=== PATIENT | female | born 1990 | race Native Hawaiian/Other Pacific Islander ===

== ENCOUNTER 2016-08-23 20:01 | Inpatient (IN) | payer BC, MEDICAID, OTHER ==
[2016-08-23] MEDS ORDERED: DIPH,PERTUS(ACELL)TETVAC-LF 0.5 ML VIAL IM ONE (22:09)
--- NOTE | 2016-08-23 22:12 | ED ---
General Adult HPI - General Chief complaint: Psychiatric Symptoms Stated complaint: Mental Health Time Seen by Provider: 08/23/16 21:50 Source: patient, family, RN notes reviewed Mode of arrival: ambulatory Limitations: no limitations - History of Present Illness Initial comments: Patient is a pleasant 26-year-old female presenting to the emergency Department with depression and suicidal thoughts. Patient abraded her left forearm. Patient does have a history of suicide attempt in the past. No homicidal thoughts. No alcohol or street drug use. No hallucinations. No specific reason why the patient is depressed. - Related Data Home Medications Medication Instructions Recorded Confirmed Cholecalciferol [Vitamin D3] 5,000 unit PO DAILY 08/23/16 08/23/16 [place] Carbonate 300 mg PO BID 08/23/16 08/23/16 Metoclopramide [Reglan] 5 mg PO Q6H PRN 08/23/16 08/23/16 Multivitamins, Thera [Multivitamin 1 tab PO DAILY 08/23/16 08/23/16 (formulary)] Omeprazole 20 mg PO AC-BID 08/23/16 08/23/16 Venlafaxine HCl [Effexor XR] 75 mg PO DAILY@1400 08/23/16 08/23/16 busPIRone HCl [Buspar] 10 mg PO BID 08/23/16 08/23/16 Previous Rx's Medication Instructions Recorded traZODone HCL [Desyrel] 100 mg PO HS #14 tab 09/07/15 Allergies Allergy/AdvReac Type Severity Reaction Status Date / Time No Known Allergies Allergy Verified 08/23/16 22:00 Review of Systems ROS Statement: Those systems with pertinent positive or pertinent negative responses have been documented in the HPI. ROS Other: All systems not noted in ROS Statement are negative. Constitutional: Denies: fever Eyes: Denies: eye pain ENT: Denies: ear pain Respiratory: Denies: cough Cardiovascular: Denies: chest pain Endocrine: Denies: fatigue Gastrointestinal: Denies: abdominal pain Genitourinary: Denies: dysuria Musculoskeletal: Denies: back pain Skin: Denies: rash Psychiatric: Reports: depression, suicidal thoughts Past Medical History Past Medical History: GERD/Reflux Additional Past Medical History / Comment(s): Bulemia with purging, acne, endometriosis History of Any Multi-Drug Resistant Organisms: None Reported Past Surgical History: No Surgical Hx Reported Past Anesthesia/Blood Transfusion Reactions: No Reported Reaction Past Psychological History: Anxiety, Depression Smoking Status: Never smoker Past Alcohol Use History: None Reported, Occasional Additional Past Alcohol Use History / Comment(s): pt has not drank since february or march 2015 Past Drug Use History: None Reported, Marijuana Additional Drug Use History / Comment(s): has not smoked mj since november 2014 - Past Family History Father Family Medical History: Diabetes Mellitus, Hypertension Additional Family Medical History / Comment(s): Father is alive at age 48 and has history of hypertension and diabetes. Mother Family Medical History: Hypertension Additional Family Medical History / Comment(s): Mother is age 51 and has history of hypertension and palpitations. Patient has 1 brother and 1 sister with no major medical problems. General Exam Limitations: no limitations General appearance: alert, in no apparent distress Head exam: Present: atraumatic Eye exam: Present: normal appearance, PERRL ENT exam: Present: normal oropharynx Neck exam: Present: normal inspection Respiratory exam: Present: normal lung sounds bilaterally Cardiovascular Exam: Present: regular rate, normal rhythm GI/Abdominal exam: Present: soft. Absent: tenderness Extremities exam: Absent: tenderness Neurological exam: Present: alert Psychiatric exam: Present: depressed, suicidal ideation Skin exam: Present: abrasion (Left forearm) Course Vital Signs 08/23/16 20:17 Temperature 98.6 F Pulse Rate 119 H Respiratory 18 Rate Blood Pressure 137/74 O2 Sat by Pulse 98 Oximetry Medical Decision Making - Medical Decision Making Patient was seen by mental health services who did admit - Lab Data Lab Results 08/23/16 Range/Units 21:53 Urine Opiates Screen Not Detected (NotDetected) Ur Oxycodone Screen Not Detected (NotDetected) Urine Methadone Screen Not Detected (NotDetected) Ur Propoxyphene Screen Not Detected (NotDetected) Ur Barbiturates Screen Not Detected (NotDetected) U Tricyclic Antidepress Not Detected (NotDetected) Ur Phencyclidine Scrn Not Detected (NotDetected) Ur Amphetamines Screen Not Detected (NotDetected) U Methamphetamines Scrn Not Detected (NotDetected) U Benzodiazepines Scrn Detected H (NotDetected) Urine Cocaine Screen Not Detected (NotDetected) U Marijuana (THC) Screen Not Detected (NotDetected) Disposition Clinical Impression: Depression, Suicidal ideation Disposition: TRANSFER TO PSYCH HOSP/UNIT
[2016-08-24] MEDS ORDERED: ACETAMINOPHEN TAB 325 MG TAB PO PRN (02:18)
[2016-08-24] MEDS ORDERED: ZIPRASIDONE 20 MG VIAL IM PRN (02:18)
[2016-08-24] MEDS ORDERED: MAG HYDROX/AL HYDROX/SIMETH 30 ML CUP PO PRN (02:18)
[2016-08-24] MEDS ORDERED: MAGNESIUM HYDROXIDE 2,400 MG/10 ML CUP PO PRN (02:18)
[2016-08-24] MEDS ORDERED: LORazepam 2 MG/ML SYRINGE IM PRN (02:34)
[2016-08-24] MEDS ORDERED: LORazepam 1 MG TAB PO PRN (02:34)
[2016-08-24 02:59] LABS: Appearance,Urine Clear (Clear); Bilirubin,Urine Negative (Negative); Glucose,Urine (UA) Negative (Negative); Ketones,Urine Negative (Negative); Leukocyte Esterase,Urine Negative (Negative); Nitrite,Urine Negative (Negative); Protein,Urine Negative (Negative); UA Billing (MACRO vs. MICRO) CHEM; Urobilinogen,Urine <2.0 mg/dL (<2.0)
[2016-08-24 05:45] VITALS: RESP 16
[2016-08-24] MEDS: CHOLECALCIFEROL 1,000 UNIT TAB PO SCH (09:54)
[2016-08-24] MEDS: busPIRone HCl 10 MG TAB PO SCH ×2 (09:56→20:26)
[2016-08-24] MEDS: LITHIUM CARBONATE 300 MG CAP PO SCH ×2 (09:56→20:26)
[2016-08-24] MEDS: PANTOPRAZOLE 40 MG TABLET PO SCH ×2 (09:56→17:27)
[2016-08-24] MEDS: MULTIVITAMINS, THERA 1 EACH TAB PO SCH (09:56)
[2016-08-24 10:06] LABS: Aty Lym Flag Slight; CH 25.3; CHCM 29.9; HCT 41.8 % (34.0-46.0); HDW 2.32; HGB 12.6 gm/dL (11.4-16.0); Hypochromasia Marked; MCH 25.4 pg (25.0-35.0); MCV 84.8 fL (80.0-100.0); Mean Platelet Volume 6.3; RBC 4.93 m/uL (3.80-5.40); RDW 11.8 % (11.5-15.5); WBC 7.5 k/uL (3.8-10.6); WBC (Perox) 8.09
[2016-08-24 10:49] LABS: ALT 49 U/L (9-52); AST 34 U/L (14-36); Alkaline Phosphatase 87 U/L (38-126); Anion Gap 13 mmol/L; Blood Urea Nitrogen 13 mg/dL (7-17); Carbon Dioxide 24 mmol/L (22-30); Chloride 103 mmol/L (98-107); Glucose 108 mg/dL (74-99); Non-African American GFR(MDRD) >60 (>60 ml/min/1.73 sqM); Potassium 3.9 mmol/L (3.5-5.1); Sodium 140 mmol/L (137-145); Total Bilirubin 0.9 mg/dL (0.2-1.3); Total Protein 6.9 g/dL (6.3-8.2)
[2016-08-24 11:14] LABS: Add Differential Manual Differential
[2016-08-24 11:16] LABS: Manual Review Performed; Nucleated Red Blood Cells 0 /100 WBC (0-0); Total Cells Counted 100
[2016-08-24 11:17] LABS: RBC Morphology Normal
[2016-08-24] MEDS: VENLAFAXINE HCL ER 75 MG CAP PO SCH (13:26)
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
[2016-08-24] MEDS: traZODone HCL 100 MG TAB PO SCH (20:27)
[2016-08-24] MEDS: MELATONIN 3 MG TABLET PO SCH (20:27)
--- NOTE | 2016-08-24 20:52 | CONS ---
DATE OF CONSULTATION: REASON FOR CONSULTATION: Medical evaluation of a patient admitted to the hospital to the psych floor. HISTORY OF PRESENT ILLNESS: This is a 26-year-old female with history of major depression, has had suicidal ideations in the past, comes in the hospital with complaints of suicidal thoughts. Patient states that she has not made any plan to pursue her thoughts and hence was seeking help. Patient is in normal health. Denies having any past medical history. At the time of my evaluation, the patient denies having any change in vision, headaches, blurry vision, nausea, vomiting, chest pain, difficulty breathing, abdominal pain, urinary urgency or frequency or change in bowel habits in the recent time. Past medical history includes: 1. Major depression. 2. Remote history of endometriosis. 3. Irritable bowel syndrome. ALLERGIES: No known drug allergies. 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 Denies any alcohol, illicit drugs or tobacco use at this time. FAMILY HISTORY: Denies any history of cancers or premature heart disease or strokes at this time. PAST SURGICAL HISTORY: None. REVIEW OF SYSTEMS: Fourteen-point review of systems was done; none pertinent other than those mentioned above. PHYSICAL EXAMINATION: VITAL SIGNS: Temperature is 99.9, heart rate is 95, respiratory rate 16, blood pressure is 121. Saturating 87% on room air. GENERALLY: Patient appears to be alert, oriented x3. HEENT: The pupils are equal and reactive to light and accommodation. HEART: S1, S2 present. No murmur appreciated. LUNGS: Good air entry. No wheezing or rhonchi noted. ABDOMINAL EXAM: Soft, nontender, no organomegaly appreciated. GENITOURINARY: No Cantu in place. EXTREMITIES: Pulses can be palpated distally. Denies any tenderness on gross palpation. SKIN: On a gross skin exam does not appear to have any purpura or any skin rashes that were noted. NEUROLOGICALLY: Grossly cranial nerves 2-12 intact. No motor or sensory deficits noted. Cranial nerves II through XII within normal limits. No focal motor or sensory deficits noted. No dysdiadochokinesia appreciated. Recalls 2 objects after 10 minutes. Gait is within normal limits. LABORATORY DATA: Hemoglobin 12.6, hematocrit 41.8, white count 7.5, platelets of 287. Sodium 140, potassium 3.9, chloride 103, bicarb 24, BUN 13, creatinine 0.68, TSH is less than 0.015. ASSESSMENT: 1. Major depression with suicidal ideation. 2. History of endometriosis. PLAN: TSH appears to be subnormal. Patient does have some isolated runs of tachycardia. Patient appears to be on lithium at home. T4 will be obtained. If T4 appears to be elevated patient, then the patient likely has hyperthyroidism, if TSH appears to be normal or low, than central hypothyroidism should be investigated. In this patient, once is ruled out, PTU should be offered if elevated. This will be informed to the R.N. who will notify our service in the a.m. Thank you for the consultation.
[2016-08-24 21:23] LABS: Lithium 0.4 mmol/L
[2016-08-25] MEDS: CHOLECALCIFEROL 1,000 UNIT TAB PO SCH (08:42)
[2016-08-25] MEDS: busPIRone HCl 10 MG TAB PO SCH ×2 (08:44→20:39)
[2016-08-25] MEDS: PANTOPRAZOLE 40 MG TABLET PO SCH ×2 (08:44→17:32)
[2016-08-25] MEDS: MULTIVITAMINS, THERA 1 EACH TAB PO SCH (08:44)
[2016-08-25] MEDS: LITHIUM CARBONATE 300 MG CAP PO SCH ×2 (08:44→20:39)
[2016-08-25] MEDS: VENLAFAXINE HCL ER 75 MG CAP PO SCH (13:28)
--- NOTE | 2016-08-25 14:36 | P.PN ---
Progress Note - Text SUBJECTIVE: I reviewed the medical record, interviewed Ms. Presley and discussed her treatment and shame plan during team meeting. She complained of continued feelings of depression and moderate to marked anxiety. During her interview she cried frequently. She perseverated on family issues such as feeling neglected, having undue expectations and feeling a disappointment. Staff reports that she was tearful during therapeutic groups and activities. We discussed the results of the TSH and free T4. I explained the pattern of results suggests that she has hyperthyroidism. I gave her an information sheet providing basic information about hyperthyroidism. OBJECTIVE: She presented as a casually groomed young woman who was pleasant on approach. She maintained eye contact and attended the interview. She had noticed a machine features are prominent physical abnormalities. She had a distressed and depressed facial expression. She was alert and oriented to person, place and time. She showed slight psychomotor retardation but no abnormal involuntary movements. Her speech was spontaneous with normal rate, rhythm and volume. She had no articulation difficulties. Her affect was depressed and not reactive. She expressed suicidal ideation or wishes without intent or plan. She denied homicidal ideation. She feels hopeless, helpless and worthless. She ruminated about family issues and feelings of worthlessness. She did not express ideas reference or paranoid ideation. Her thinking was abstract and her associations were coherent and logical. She denied hallucinations and did not appear to responding to internal stimuli. Her serum lithium level was 0.4. ASSESSMENT: She continued to express feelings of hopelessness, helplessness and worthlessness. She has suicidal ideation without intent or plan. 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 PLAN: Continue inpatient hospitalization due to severe depression and suicidal ideation. Consult medicine for treatment of the central hyperthyroidism. Continue BuSpar 10 mg twice a day, lithium carbonate 300 mg twice a day and trazodone milligrams at bedtime. Continue Effexor XR 75 mg by mouth daily and titrated according to clinical response and tolerance. Continue melatonin 3 mg at bedtime for sleep. Encouraged continued participation in therapeutic groups and activities. Evaluate clinical status response to treatment on a daily basis.
[2016-08-25] MEDS: PROPYLTHIOURACIL 50 MG TAB PO SCH ×2 (15:51→20:39)
[2016-08-25] MEDS: MELATONIN 3 MG TABLET PO SCH (20:39)
[2016-08-25] MEDS: traZODone HCL 100 MG TAB PO SCH (20:40)
--- NOTE | 2016-08-25 22:15 | PN ---
I was asked to be evaluated the patient because elevated TSH. I started her on Propylthiouracil and patient will need further evaluation as an outpatient in the endocrinology clinic. Patient is also on lithium, which can cause and hyper and hypothyroidism. I will discuss with psychiatrist. Patient does have symptoms of anxiety and does have some tachycardia and sleep issues related to probably primary hyperthyroidism. Previous. REVIEW OF SYSTEMS: GENERAL: As described in HPI. CARDIOVASCULAR: No chest pain, no orthopnea, no PND, no palpitations. PULMONARY: Denied any shortness of breath. No cough or hemoptysis. GASTROINTESTINAL: No diarrhea, nausea or vomiting. No abdominal pain. Normoactive bowel sounds. NEUROLOGIC: No headaches, no weakness, no numbness. Medications were reviewed. PHYSICAL EXAMINATION: VITAL SIGNS: Temperature 97.9, pulse of 105, respiratory rate of 16, blood pressure is 132/60, saturating at 98% on room air. GENERAL: The patient is alert and oriented x3, not in any acute distress. Well developed, well nourished. HEENT: Pupils are round and equally reacting to light. EOMI. No scleral icterus. No conjunctival pallor. Normocephalic, atraumatic. No pharyngeal erythema. No thyromegaly. CARDIOVASCULAR: S1 and S2 present. No murmurs, rubs, or gallops. PULMONARY: Chest is clear to auscultation, no wheezing or crackles. ABDOMEN: Soft, nontender, nondistended, normoactive bowel sounds. No palpable organomegaly. MUSCULOSKELETAL: No joint swelling or deformity. EXTREMITIES: No cyanosis, clubbing, or pedal edema. NEUROLOGICAL: Gross neurological examination did not reveal any focal deficits. SKIN: No rashes. LABORATORY DATA: CBC, CMP, essentially within normal limits. Free T4 is elevated. ASSESSMENT AND PLAN: 1. Primary hyperparathyroidism. Management as mentioned above. Patient was started on Propylthiouracil. 2. Gastroesophageal reflux disease. 3. Multiple psychiatric medical problems. Bipolar disorder management as per Primary Service. I will discuss with Hematology regarding lithium.
[2016-08-26] MEDS: PROPYLTHIOURACIL 50 MG TAB PO SCH (06:04)
[2016-08-26 06:57] VITALS: BP 114/56; PULSE 107; TEMP 98
[2016-08-26] MEDS: LITHIUM CARBONATE 300 MG CAP PO SCH (09:07)
[2016-08-26] MEDS: busPIRone HCl 10 MG TAB PO SCH (09:07)
[2016-08-26] MEDS: PANTOPRAZOLE 40 MG TABLET PO SCH (09:07)
[2016-08-26] MEDS: CHOLECALCIFEROL 1,000 UNIT TAB PO SCH (09:07)
[2016-08-26] MEDS: MULTIVITAMINS, THERA 1 EACH TAB PO SCH (09:08)
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
== END 2016-08-26 12:26 | disposition home or self-care (01) | DRG 885 ==
LOC: EC 20:01 → 3MHU 08-24 01:30
PROVIDERS: ADMIT Psychiatry & Neurology Psychiatry; ATTEND Psychiatry & Neurology Psychiatry
DX: F33.2 Major depressive disorder, recurrent severe without psychotic features (principal); F50.2 Bulimia nervosa; R45.851 Suicidal ideations; E05.90 Thyrotoxicosis, unspecified without thyrotoxic crisis or storm; E21.0 Primary hyperparathyroidism; F41.9 Anxiety disorder, unspecified; K21.9 Gastro-esophageal reflux disease without esophagitis; K58.9 Irritable bowel syndrome, unspecified; S50.812A Abrasion of left forearm, initial encounter; X78.9XXA Intentional self-harm by unspecified sharp object, initial encounter; Z79.899 Other long term (current) drug therapy; Z82.49 Family history of ischemic heart disease and other diseases of the circulatory system; Z91.5 Personal history of self-harm
CPT/HCPCS: 80053; 80178; 80306; 81003; 81025; 82075; 84436; 84439; 84443; 85025; 90471; 90715; 99285

== ENCOUNTER → 2016-09-14 | Outpatient (CLI) | payer OTHER ==
--- NOTE | 2016-09-14 15:56 | US ---
EXAMINATION TYPE: US thyroid st tissue head/neck DATE OF EXAM: 09/14/2016 3:44 PM COMPARISON: NONE CLINICAL HISTORY: E05.90 Thyrotoxicosis without mention of goiter. Hyperthyroidism GLAND SIZE: Right Lobe: 5.1 x 1.1 x 1.5 cm Overall Parenchyma: heterogenous Left Lobe: 5.2 x 1.3 x 1.7 cm Overall Parenchyma: heterogeneous Isthmus Thickness: 0.3 cm NODULES RIGHT: # of nodules measured on right: 0 LEFT: # of nodules measured on left: 0 ISTHMUS: # of nodules measured in the isthmus: 0 Bilateral neck scanned, no evidence of lymphadenopathy. IMPRESSION: Normal thyroid
== END | disposition home or self-care (01) ==
LOC: RADUSWWP 15:28
PROVIDERS: ATTEND Family Medicine
DX: E05.90 Thyrotoxicosis, unspecified without thyrotoxic crisis or storm (principal)
CPT/HCPCS: 76536

== ENCOUNTER 2016-10-19 06:22 | Emergency (ER) | payer OTHER ==
[2016-10-19 06:47] VITALS: TEMP 98.6
[2016-10-19 07:11] LABS: Appearance,Urine Cloudy (Clear); Bilirubin,Urine Negative (Negative); Glucose,Urine (UA) Negative (Negative); Ketones,Urine Negative (Negative); Leukocyte Esterase,Urine Negative (Negative); Mucus,Urine Rare /hpf; Nitrite,Urine Negative (Negative); Particle Count 1110; Protein,Urine Negative (Negative); RBC,Urine <1 /hpf (0-5); Specific Gravity,Urine 1.015 (1.001-1.035); Squamous Epithelial Cell,Urine <1 /hpf (0-4); UA Billing (MACRO vs. MICRO) MICRO; Urobilinogen,Urine <2.0 mg/dL (<2.0); WBC,Urine 1 /hpf (0-5)
--- NOTE | 2016-10-19 07:19 | ED ---
Psych HPI - General Source: patient Mode of arrival: ambulatory - History of Present Illness MD Complaint: suicidal ideation, feels depressed -: days(s) Associated Psychiatric Symptoms: depression, suicidal ideation History of same: Yes Quality: getting worse Improves With: none Worsens With: none Associated Symptoms: denies other symptoms <Luis Camargo - Last Filed: 10/19/16 06:56> <Rha Walker - Last Filed: 10/19/16 11:09> - General Chief Complaint: Psychiatric Symptoms Stated Complaint: Suicidal Time Seen by Provider: 10/19/16 06:44 - History of Present Illness Initial Comments: This patient is a 26-year-old woman who states she has a history of bipolar disorder, who presents with worsening of her mood and some suicidal ideation. She states that things been getting worse over past few days to weeks, and were much worse last night. She had considered cutting her wrists. Patient denies visual or auditory hallucinations. (Luis Camargo) - Related Data Home Medications Medication Instructions Recorded Confirmed [place] Carbonate 300 mg PO BID 08/23/16 10/19/16 Metoclopramide [Reglan] 10 mg PO Q8H PRN 08/23/16 10/19/16 Omeprazole 20 mg PO AC-BID 08/23/16 10/19/16 Venlafaxine HCl [Effexor XR] 75 mg PO DAILY@1400 08/23/16 10/19/16 busPIRone HCl [Buspar] 10 mg PO BID 08/23/16 10/19/16 Melatonin 3 mg PO HS 08/24/16 10/19/16 Biotin 10,000 mcg PO DAILY 10/19/16 10/19/16 Fish Oil/Dha/Epa [Fish Oil 1,200 1 cap PO DAILY 10/19/16 10/19/16 mg Fish Oil] Metoprolol Tartrate [Lopressor] 25 mg PO BID 10/19/16 10/19/16 Naproxen 500 mg PO DAILY PRN 10/19/16 10/19/16 diphenhydrAMINE HCL 25 mg PO DAILY PRN 10/19/16 10/19/16 [Diphenhydramine HCl] Previous Rx's Medication Instructions Recorded traZODone HCL [Desyrel] 100 mg PO HS #14 tab 09/07/15 Allergies Allergy/AdvReac Type Severity Reaction Status Date / Time No Known Allergies Allergy Verified 10/19/16 07:40 Review of Systems ROS Other: All systems not noted in ROS Statement are negative. Constitutional: Denies: fever, chills Eyes: Denies: vision change Respiratory: Denies: cough, dyspnea Cardiovascular: Denies: chest pain Gastrointestinal: Denies: abdominal pain, vomiting, diarrhea Genitourinary: Denies: dysuria, hematuria, abnormal menses Musculoskeletal: Denies: back pain Skin: Denies: rash Neurological: Denies: headache, weakness, numbness Psychiatric: Reports: depression, suicidal thoughts. Denies: auditory hallucinations, visual hallucinations, homicidal thoughts <Mary JoLuis - Last Filed: 10/19/16 06:56> ROS Other: All systems not noted in ROS Statement are negative. <Rah Walker - Last Filed: 10/19/16 11:09> ROS Statement: Those systems with pertinent positive or pertinent negative responses have been documented in the HPI. Past Medical History Past Medical History: GERD/Reflux Additional Past Medical History / Comment(s): Bulemia with purging-month ago, acne, endometriosis, hypothyroid History of Any Multi-Drug Resistant Organisms: None Reported Past Surgical History: No Surgical Hx Reported Past Anesthesia/Blood Transfusion Reactions: No Reported Reaction Past Psychological History: Anxiety, Depression Smoking Status: Never smoker Past Alcohol Use History: Occasional Additional Past Alcohol Use History / Comment(s): pt has not drank since february or march 2015 Past Drug Use History: Marijuana Additional Drug Use History / Comment(s): has not smoked mj since november 2014 - Past Family History Father Family Medical History: Diabetes Mellitus, Hypertension Additional Family Medical History / Comment(s): Father is alive at age 50 and has history of hypertension and diabetes. Mother Family Medical History: Hypertension Additional Family Medical History / Comment(s): Mother is age 52 and has history of hypertension and palpitations. Patient has 1 brother and 1 sister with no major medical problems. <Mary JoLuis - Last Filed: 10/19/16 06:56> General Exam Limitations: no limitations General appearance: alert, in no apparent distress Head exam: Present: atraumatic, normocephalic Eye exam: Present: normal appearance Respiratory exam: Present: normal lung sounds bilaterally. Absent: respiratory distress, wheezes, rales, rhonchi, stridor Cardiovascular Exam: Present: regular rate, normal rhythm, normal heart sounds. Absent: systolic murmur, diastolic murmur, rubs, gallop GI/Abdominal exam: Present: soft. Absent: distended, tenderness, guarding, rebound, mass Extremities exam: Present: normal inspection, normal capillary refill. Absent: pedal edema, calf tenderness Back exam: Present: normal inspection. Absent: CVA tenderness (R), CVA tenderness (L) Neurological exam: Present: alert Skin exam: Present: warm, dry, intact, normal color. Absent: rash, cyanosis, diaphoretic, erythema, petechiae, pallor, mottled <Luis Camargo - Last Filed: 10/19/16 06:56> Medical Decision Making <Luis Camargo - Last Filed: 10/19/16 06:56> <Rah Walker - Last Filed: 10/19/16 11:09> - Medical Decision Making [facility] came into reevaluate the patient and found appropriate follow-up he discussed the case with psychiatry and they agreed that the patient could be discharged home and follow up as directed. (Rah Walker) - Lab Data Lab Results 10/19/16 10/19/16 Range/Units 06:39 06:39 Urine Color Yellow Urine Appearance Cloudy H (Clear) Urine pH 7.0 (5.0-8.0) Ur Specific [place] 1.015 (1.001-1.035) Urine Protein Negative (Negative) Urine Glucose (UA) Negative (Negative) Urine Ketones Negative (Negative) Urine Blood Negative (Negative) Urine Nitrite Negative (Negative) Urine Bilirubin Negative (Negative) Urine Urobilinogen <2.0 (<2.0) mg/dL Ur Leukocyte Esterase Negative (Negative) Urine RBC <1 (0-5) /hpf Urine WBC 1 (0-5) /hpf Ur Squamous Epith Cells <1 (0-4) /hpf Hyaline Casts 1 (0-2) /lpf Urine Mucus Rare H (None) /hpf Urine Opiates Screen Not Detected (NotDetected) Ur Oxycodone Screen Not Detected (NotDetected) Urine Methadone Screen Not Detected (NotDetected) Ur Propoxyphene Screen Not Detected (NotDetected) Ur Barbiturates Screen Not Detected (NotDetected) U Tricyclic Antidepress Not Detected (NotDetected) Ur Phencyclidine Scrn Not Detected (NotDetected) Ur Amphetamines Screen Not Detected (NotDetected) U Methamphetamines Scrn Not Detected (NotDetected) U Benzodiazepines Scrn Not Detected (NotDetected) Urine Cocaine Screen Not Detected (NotDetected) U Marijuana (THC) Screen Not Detected (NotDetected) Disposition <Luis Camargo - Last Filed: 10/19/16 06:56> Time of Disposition: 11:09 <Rah Walker - Last Filed: 10/19/16 11:09> Clinical Impression: Depression, Suicidal ideation Disposition: HOME SELF-CARE Condition: Good Instructions: Depression (ED) Referrals: Sadiq Livingston MD [Primary Care Provider] - 1-2 days
[2016-10-19 10:30] VITALS: RESP 16
[2016-10-19 11:41] VITALS: BP 145/70; PULSE 67
== END 2016-10-19 11:40 | disposition home or self-care (01) ==
LOC: EC 06:22
DX: F32.9 Major depressive disorder, single episode, unspecified (principal); R45.851 Suicidal ideations; K21.9 Gastro-esophageal reflux disease without esophagitis; E03.9 Hypothyroidism, unspecified; F41.9 Anxiety disorder, unspecified; Z79.899 Other long term (current) drug therapy
CPT/HCPCS: 80306; 81001; 82075; 99284

== ENCOUNTER → 2016-11-14 | Outpatient (CLI) | payer OTHER ==
[2016-11-14 11:04] LABS: Blood Urea Nitrogen 16 mg/dL (7-17); Cholesterol 221 mg/dL (<200); Glucose 104 mg/dL (74-99); HDL Cholesterol 79 mg/dL (40-60); Lithium 0.6 mmol/L; Non-African American GFR(MDRD) >60 (>60 ml/min/1.73 sqM); Triglycerides 68 mg/dL (<150)
[2016-11-14 11:35] LABS: Hemoglobin A1C 5.4 % (4.2-6.1)
== END | disposition home or self-care (01) ==
LOC: LABWHC1 07:49
PROVIDERS: ATTEND Psychiatry & Neurology Psychiatry
DX: Z51.81 Encounter for therapeutic drug level monitoring (principal); Z79.899 Other long term (current) drug therapy
CPT/HCPCS: 36415; 80061; 80178; 82565; 82947; 83036; 84439; 84443; 84520

== ENCOUNTER → 2017-06-23 | Outpatient (CLI) | payer MEDICAID ==
[2017-06-23 12:18] LABS: Blood Urea Nitrogen 11 mg/dL (7-17); Cholesterol 229 mg/dL (<200); Glucose 92 mg/dL (74-99); HDL Cholesterol 66 mg/dL (40-60); LDL Cholesterol,Calculated 128 mg/dL (0-99); Lithium 0.5 mmol/L; Triglycerides 174 mg/dL (<150)
[2017-06-23 12:32] LABS: T4, Free (Free Thyroxine) 1.47 ng/dL (0.78-2.19)
[2017-06-23 18:41] LABS: Hemoglobin A1C 5.3 % (4.0-6.0)
[2017-06-23 20:49] LABS: Urine Alcohol Negative (Negative); Urine Barbiturate Negative (Negative); Urine Cocaine Negative (Negative); Urine Methadone Negative (Negative); Urine Opiates Negative (Negative); Urine Phencyclidine Negative (Negative)
== END ==
LOC: LABWHC1 11:13
PROVIDERS: ATTEND Psychiatry & Neurology Psychiatry
DX: Z51.81 Encounter for therapeutic drug level monitoring (principal); Z79.899 Other long term (current) drug therapy
CPT/HCPCS: 36415; 80061; 80178; 80306; 82565; 82947; 83036; 84439; 84443; 84520

== ENCOUNTER → 2017-11-10 | Outpatient (CLI) | payer MEDICAID | END | disposition home or self-care (01) | LOC: LABWHC1 15:09 | PROVIDERS: ATTEND Psychiatry & Neurology Neurology | DX: M54.12 Radiculopathy, cervical region (principal) | CPT/HCPCS: 36415; 82565; 84520 ==

== ENCOUNTER → 2018-06-06 | Outpatient (CLI) | payer MEDICAID ==
--- NOTE | 2018-06-06 18:34 | US ---
EXAMINATION TYPE: US thyroid st tissue head/neck DATE OF EXAM: 06/06/2018 COMPARISON: CLINICAL HISTORY: E04.9 nontoxic goiter. hx goiter, on thyroid meds GLAND SIZE: Right Lobe: 5.7 x 2.0 x 2.0 cm Overall Parenchyma: Slightly heterogenous Left Lobe: 4.8 x 2.0 x 1.8 cm Overall Parenchyma: Slightly heterogenous Isthmus Thickness: 0.9 cm NODULES RIGHT: # of nodules measured on right: 0 LEFT: # of nodules measured on left: 0 ISTHMUS: # of nodules measured in the isthmus: 0 Bilateral neck scanned, no evidence of lymphadenopathy. Slightly enlarged thyroid gland with slightly increased vascular flow throughout. IMPRESSION: Minimally enlarged thyroid gland with slightly increased vascular flow throughout that can be seen in thyroiditis.
== END ==
LOC: RADUSWWP 16:45
PROVIDERS: ATTEND Family Medicine
DX: E04.9 Nontoxic goiter, unspecified (principal)
CPT/HCPCS: 76536

== ENCOUNTER → 2018-08-20 | Outpatient (CLI) | payer MEDICAID ==
--- NOTE | 2018-08-20 12:59 | CT ---
EXAMINATION TYPE: CT sinus wo con DATE OF EXAM: 08/20/2018 COMPARISON: None HISTORY: Facial pain and pressure with infection for 3-[address] DLP: 559 mGycm. Automated Exposure Control for Dose Reduction was Utilized. TECHNIQUE: CT scan of the sinuses is performed without contrast, axial images are obtained, coronal r eformatted images are also reviewed. FINDINGS: The paranasal sinuses including the frontal, ethmoid, sphenoid, and maxillary sinuses bila terally show no air-fluid levels, mild mucoperiosteal thickening present along the maxillary sinuses and ethmoid air cells. Possible small mucus retention cyst within the left maxillary sinus versus re tained secretion. The ostiomeatal complex is patent bilaterally on the coronal images. Visualized portion of mastoid air cells show no abnormal opacification. The globes are intact bilate rally. IMPRESSION: Findings suggest chronic sinusitis.
== END | disposition home or self-care (01) ==
LOC: RADCTMAIN 12:18
PROVIDERS: ATTEND Family Medicine
DX: J01.90 Acute sinusitis, unspecified (principal)
CPT/HCPCS: 70486

== ENCOUNTER 2019-01-09 12:18 | Emergency (ER) | payer MEDICAID ==
[2019-01-09 12:26] VITALS: TEMP 97.8
[2019-01-09] MEDS ORDERED: OXYMETAZOLINE 0.05% NASL SPRAY 1 SPRAY BOTTLE NASAL STA (12:28)
--- NOTE | 2019-01-09 13:40 | ED ---
General Adult HPI - General Chief complaint: ENT Stated complaint: Nose bleed Time Seen by Provider: 01/09/19 12:28 Source: patient, RN notes reviewed, old records reviewed Mode of arrival: ambulatory Limitations: no limitations - History of Present Illness Initial comments: 28-year-old female patient with no pertinent past medical history, no blood thinners presents ED chief complaint of right anterior epistaxis she reports this began approximately 10 minutes prior to presentation to ER. Patient denies any other complaints at this time. Denies any headache, denies any change in vision. Systemic: Pt denies fatigue, fever/chills, rash. Pt denies weakness, night sweats, weight loss. Neuro: Pt denies headache, visual disturbances, syncope or pre-syncope. HEENT: Pt denies ocular discharge or irritation, otalgia, rhinorrhea, pharyngitis or notable lymphadenopathy. Cardiopulmonary: Pt denies chest pain, SOB, heart palpitations, dyspnea on exertion. Abdominal/GI: Pt denies abdominal pain, n/v/d. : Pt denies dysuria, burning w/ urination, frequency/urgency. Denies new onset urinary or bowel incontinence. MSK: Pt denies myalgia, loss of strength or function in extremities. Neuro: Pt denies new onset weakness, paresthesias. - Related Data Home Medications Medication Instructions Recorded Confirmed [place] Carbonate 300 mg PO BID 08/23/16 10/19/16 Metoclopramide [Reglan] 10 mg PO Q8H PRN 08/23/16 10/19/16 Omeprazole 20 mg PO AC-BID 08/23/16 10/19/16 Venlafaxine HCl [Effexor XR] 75 mg PO DAILY@1400 08/23/16 10/19/16 busPIRone HCl [Buspar] 10 mg PO BID 08/23/16 10/19/16 Melatonin 3 mg PO HS 08/24/16 10/19/16 Biotin 10,000 mcg PO DAILY 10/19/16 10/19/16 Fish Oil/Dha/Epa [Fish Oil 1,200 1 cap PO DAILY 10/19/16 10/19/16 mg Fish Oil] Metoprolol Tartrate [Lopressor] 25 mg PO BID 10/19/16 10/19/16 Naproxen 500 mg PO DAILY PRN 10/19/16 10/19/16 diphenhydrAMINE HCL 25 mg PO DAILY PRN 10/19/16 10/19/16 [Diphenhydramine HCl] Previous Rx's Medication Instructions Recorded traZODone HCL [Desyrel] 100 mg PO HS #14 tab 09/07/15 Allergies Allergy/AdvReac Type Severity Reaction Status Date / Time No Known Allergies Allergy Verified 01/09/19 12:50 Review of Systems ROS Statement: Those systems with pertinent positive or pertinent negative responses have been documented in the HPI. ROS Other: All systems not noted in ROS Statement are negative. Past Medical History Past Medical History: GERD/Reflux Additional Past Medical History / Comment(s): Bulemia with purging-month ago, acne, endometriosis, hypothyroid History of Any Multi-Drug Resistant Organisms: None Reported Past Surgical History: No Surgical Hx Reported, Bladder Surgery Past Anesthesia/Blood Transfusion Reactions: No Reported Reaction Past Psychological History: Anxiety, Bipolar, Depression Smoking Status: Never smoker Past Alcohol Use History: Occasional Past Drug Use History: Marijuana - Past Family History Father Family Medical History: Diabetes Mellitus, Hypertension Additional Family Medical History / Comment(s): Father is alive at age 50 and has history of hypertension and diabetes. Mother Family Medical History: Hypertension Additional Family Medical History / Comment(s): Mother is age 52 and has history of hypertension and palpitations. Patient has 1 brother and 1 sister with no major medical problems. General Exam - General Exam Comments Initial Comments: Constitutional: NAD, AOX3, Pt has pleasant affect. HEENT: NC/AT, trachea midline, neck supple, no lymphadenopathy. Posterior pharynx non erythematous, without exudates. External ears appear normal, without discharge. Mucous membranes moist. Eyes PERRLA, EOM intact. There is no scleral icterus. No pallor noted. Dried blood noted at right LEXA. Cardiopulmonary: RRR, no murmurs, rubs or gallops, no JVD noted. Lungs CTAB in anterior and posterior larson. No peripheral edema. Abdominal exam: Abdomen soft and non-distended. Abdomen non-tender to palpation in all 4 quadrants. Bowel sounds active in LLQ. No hepatosplenomegaly. No ecchymosis Neuro: CN II-XII grossly intact. No nuchal rigidity. No raccon eyes, no dee sign, no hemotympanum. No cervical spinal tenderness. MSK: No posterior calf tenderness bilaterally, homans sign negative bilaterally. Posterior tibialis and radial pulse +2 bilaterally. Sensation intact in upper and lower extremities. Full active ROM in upper and lower extremities, 5/5 stregnth. Limitations: no limitations Course Vital Signs 01/09/19 12:21 Temperature 97.8 F Pulse Rate 112 H Respiratory 18 Rate Blood Pressure 143/107 O2 Sat by Pulse 98 Oximetry Medical Decision Making - Medical Decision Making 28-year-old female patient with no pertinent past medical history, no blood thinners presents ED chief complaint of right anterior epistaxis she reports this began approximately 10 minutes prior to presentation to ER. Patient denies any other complaints at this time. Denies any headache, denies any change in vision. Pt VSS at discharge. Physical exam displayed red blood noted right LEXA. Epistaxis resolved with Afrin, nasal clamp. Personal discharge, follow- up with primary care provider, return to ED if condition worsens. Case discussed with Dr. Umanzor. Disposition Clinical Impression: Anterior epistaxis Disposition: HOME SELF-CARE Condition: Stable Instructions (If sedation given, give patient instructions): Nosebleed (ED) Additional Instructions: Patient to adhere to previously discussed treatment plan and will take medication(s) as directed. Patient to follow up with PCP in 1-2 days. Patient to return to ED if symptoms do not improve. Follow-up with primary care provider tomorrow, return to ER if condition worsens. Is patient prescribed a controlled substance at d/c from ED?: No Referrals: Sadiq Livingston MD [Primary Care Provider] - 1-2 days
[2019-01-09 13:53] VITALS: BP 135/88; PULSE 99; RESP 14
== END 2019-01-09 13:50 | disposition home or self-care (01) ==
LOC: EC 12:18
DX: R04.0 Epistaxis (principal); K21.9 Gastro-esophageal reflux disease without esophagitis; F41.9 Anxiety disorder, unspecified; F32.9 Major depressive disorder, single episode, unspecified; Z79.899 Other long term (current) drug therapy
CPT/HCPCS: 99283

== ENCOUNTER → 2019-01-22 | Outpatient (CLI) | payer MEDICAID ==
--- NOTE | 2019-01-22 10:22 | US ---
EXAMINATION TYPE: US liver DATE OF EXAM: 01/22/2019 COMPARISON: US, CT CLINICAL HISTORY: R74.8 Elevated liver enzymes. Takes medication for thyroid, bipolar and anxiety dis orders EXAM MEASUREMENTS: Liver Length: 17.6 cm Gallbladder Wall: 0.1 cm CBD: 0.4 cm Right Kidney: 9.5 x 6.0 x 3.9 cm Pancreas: wnl Liver: hyperechoic, vessels not well seen within liver, and attenuated posteriorly suggests fatty li deni. This limits evaluation for underlying hepatic masses although no discrete hepatic mass is seen o n today's examination. Gallbladder: wnl Evidence for sonographic Yoder's sign: no CBD: wnl Right Kidney: No hydronephrosis or masses seen IMPRESSION: Sonographic findings most commonly related to hepatic steatosis. Correlate with liver function test r esults.
== END ==
LOC: RADUSWWP 08:18
PROVIDERS: ATTEND Family Medicine
DX: R74.8 Abnormal levels of other serum enzymes (principal)
CPT/HCPCS: 76705

== ENCOUNTER → 2019-03-21 | Outpatient (CLI) | payer MEDICAID ==
--- NOTE | 2019-03-21 08:28 | US ---
EXAMINATION TYPE: US abdomen complete DATE OF EXAM: 03/21/2019 COMPARISON: 01/22/2019 CLINICAL HISTORY: 29-year-old female R10.9 Abdominal/Pelvic Pain. Right flank pain TECHNIQUE: Multiple sonographic images of the abdomen are obtained. FINDINGS: EXAM MEASUREMENTS: Liver Length: 15.7 cm Gallbladder Wall: 0.2 cm CBD: 0.4 cm Spleen: 10.6 cm Right Kidney: 10.2 x 4.1 x 5.4 cm Left Kidney: 11.4 x 4.7 x 6.1 cm Pancreas: Suboptimal visualization of the pancreatic head due to shadowing from bowel gas. The visua lized portions wnl Liver: difficult to penetrate due to increased echogenicity and attenuation. Gallbladder: No stones seen Evidence for sonographic Yoder's sign: No CBD: wnl Spleen: wnl Right Kidney: No hydronephrosis. Left Kidney: No hydronephrosis. Upper IVC: wnl Abd Aorta: wnl IMPRESSION: Redemonstrated. Echogenic and attenuating liver suggesting at least moderate, possibly severe hepatic steatosis. Correlate with LFTs, lipid profile, and patient risk factors.
--- NOTE | 2019-03-21 08:39 | US ---
EXAMINATION TYPE: US pelvic complete DATE OF EXAM: 03/21/2019 COMPARISON: None CLINICAL HISTORY: 29-year-old female R10.9 Abdominal/Pelvic Pain. Rt flank pain TECHNIQUE: Transabdominal (TA). Color Doppler and spectral waveform analysis of the ovarian arterie s and veins. Date of LMP: 02/03/2019 FINDINGS: EXAM MEASUREMENTS: Uterus: 7.9 x 2.9 x 4.9 cm Endometrial Stripe: 0.8 cm Right Ovary: 4.7 x 4.3 x 3.3 cm Left Ovary: 3.2 x 2.7 x 1.6 cm Patient on depo and does not have regular cycles. 1. Uterus: Anteverted and wnl 2. Endometrium: measures 0.8 cm 3. Right Ovary: 4.3 x 2.7 x 3.3 cm simple appearing cyst. Satisfactory arterial venous flow demonstr ated within the right ovary. 4. Left Ovary: wnl 5. Bilateral Adnexa: wnl 6. Posterior cul-de-sac: no free fluid IMPRESSION: 1. A 4.3 cm dominant follicle or functional cyst in the right ovary. Consideration can be given to fo llow-up in 6-8 weeks to ensure resolution. 2. No pelvic free fluid.
== END | disposition home or self-care (01) ==
LOC: RADUSWWP 07:27
PROVIDERS: ATTEND Family Medicine
DX: R10.9 Unspecified abdominal pain (principal)
CPT/HCPCS: 76700; 76856

== ENCOUNTER 2019-03-22 17:29 | Emergency (ER) | payer MEDICAID ==
[2019-03-22 18:32] LABS: Appearance,Urine Clear (Clear); Basophils # (A) 0.1 k/uL (0-0.2); Basophils % (A) 1 %; Bilirubin,Urine Negative (Negative); Blood,Urine Trace (Negative); Color,Urine Yellow; Eosinophils # (A) 0.2 k/uL (0-0.7); Eosinophils % (A) 2 %; Glucose,Urine (UA) Negative (Negative); HCT 42.8 % (34.0-46.0); HGB 14.3 gm/dL (11.4-16.0); Ketones,Urine Negative (Negative); Leukocyte Esterase,Urine Trace (Negative); Lymphocytes # (A) 2.7 k/uL (1.0-4.8); Lymphocytes % (A) 28 %; MCH 27.8 pg (25.0-35.0); MCHC 33.4 g/dL (31.0-37.0); MCV 83.2 fL (80.0-100.0); Mean Platelet Volume 5.5; Monocytes # (A) 0.6 k/uL (0-1.0); Monocytes % (A) 6 %; Mucus,Urine Occasional /hpf; Neutrophils # (A) 5.7 k/uL (1.3-7.7); Neutrophils % (A) 59 %; Nitrite,Urine Negative (Negative); PH, Urine 5.5 (5.0-8.0); Platelet Count 251 k/uL (150-450); Protein,Urine 1+ (Negative); RBC 5.15 m/uL (3.80-5.40); RBC,Urine 3 /hpf (0-5); RDW 13.7 % (11.5-15.5); Specific Gravity,Urine 1.021 (1.001-1.035); Squamous Epithelial Cell,Urine 1 /hpf (0-4); Urobilinogen,Urine <2.0 mg/dL (<2.0); WBC 9.7 k/uL (3.8-10.6)
--- NOTE | 2019-03-22 18:37 | XR ---
EXAMINATION TYPE: XR chest 2V DATE OF EXAM: 03/22/2019 COMPARISON: NONE HISTORY: Chest pain TECHNIQUE: Frontal and lateral views of the chest are obtained. FINDINGS: Heart and mediastinum are normal. Lungs are clear. Diaphragm is normal. Bony thorax appear s normal. IMPRESSION: Normal chest
[2019-03-22 18:38] LABS: ALT 177 U/L (9-52); AST 100 U/L (14-36); African American GFR (CKD) >90 (>60 ml/min/1.73 sqM); Albumin 4.9 g/dL (3.5-5.0); Alkaline Phosphatase 131 U/L (38-126); Anion Gap 12 mmol/L; Blood Urea Nitrogen 12 mg/dL (7-17); Carbon Dioxide 24 mmol/L (22-30); Chloride 104 mmol/L (98-107); Glucose 105 mg/dL (74-99); INR 0.9 (<1.2); Magnesium 1.8 mg/dL (1.6-2.3); Partial Thromboplastin Time 28.2 sec (22.0-30.0); Potassium 4.1 mmol/L (3.5-5.1); Prothrombin Time 9.7 sec (9.0-12.0); Sodium 140 mmol/L (137-145); Total Bilirubin 0.5 mg/dL (0.2-1.3); Total Protein 8.2 g/dL (6.3-8.2)
[2019-03-22 19:25] VITALS: TEMP 99.4
--- NOTE | 2019-03-22 20:05 | ED ---
General Adult HPI - General Chief complaint: Chest Pain Stated complaint: Poss DVT, chest pain Time Seen by Provider: 03/22/19 17:42 Source: patient, RN notes reviewed, old records reviewed Mode of arrival: ambulatory Limitations: no limitations - History of Present Illness Initial comments: 29-year-old female patient presents ED chief complaint of chest pain. Patient was reportedly seen by primary care provider who recommended that she come to ER. Patient reports that beginning approximately 12 PM she developed a right parasternal tightness sensation. Reports that the pain is reproducible upon palpation. Denies any shortness of breath. Patient is up with a deep inspiration actually makes pain better. Denies any personal cardiac history. Does have history of diabetes. Denies any other complaints. Systemic: Pt denies fatigue, fever/chills, rash. Pt denies weakness, night sweats, weight loss. Neuro: Pt denies headache, visual disturbances, syncope or pre-syncope. HEENT: Pt denies ocular discharge or irritation, otalgia, rhinorrhea, ph aryngitis or notable lymphadenopathy. Cardiopulmonary: Pt denies SOB, heart palpitations, dyspnea on exertion. Abdominal/GI: Pt denies abdominal pain, n/v/d. : Pt denies dysuria, burning w/ urination, frequency/urgency. Denies new onset urinary or bowel incontinence. MSK: Pt denies myalgia, loss of strength or function in extremities. Neuro: Pt denies new onset weakness, paresthesias. - Related Data Home Medications Medication Instructions Recorded Confirmed Omeprazole 20 mg PO DAILY 08/23/16 01/09/19 busPIRone HCl [Buspar] 10 mg PO BID 08/23/16 01/09/19 Melatonin 3 mg PO HS 08/24/16 01/09/19 Biotin 10,000 mcg PO DAILY 10/19/16 01/09/19 Naproxen 500 mg PO BID PRN 10/19/16 01/09/19 DULoxetine HCL [Cymbalta] 60 mg PO DAILY 01/09/19 01/09/19 Fluticasone Nasal [place] [Flonase 2 spr EA NOSTRIL DAILY 01/09/19 01/09/19 Nasal [place]] Levothyroxine Sodium [Synthroid] 50 mcg PO DAILY 01/09/19 01/09/19 New [place] Carbonate 600 mg PO HS 01/09/19 01/09/19 Loratadine [Claritin] 10 mg PO DAILY 01/09/19 01/09/19 Montelukast [Singulair] 10 mg PO HS 01/09/19 01/09/19 Multivitamins, Thera [Multivitamin 1 tab PO DAILY 01/09/19 01/09/19 (formulary)] OLANZapine [ZyPREXA] 10 mg PO HS 01/09/19 01/09/19 [place]-3 Fatty Acids [[place]-3] 1,000 mg PO TID 01/09/19 01/09/19 Ranitidine HCl [Zantac] 150 mg PO BID 01/09/19 01/09/19 medroxyPROGESTERone [Depo-Provera] 150 mg IM Q84D 01/09/19 01/09/19 traZODone HCL 50 mg PO HS 01/09/19 01/09/19 Allergies Allergy/AdvReac Type Severity Reaction Status Date / Time No Known Allergies Allergy Verified 03/22/19 17:41 Review of Systems ROS Statement: Those systems with pertinent positive or pertinent negative responses have been documented in the HPI. ROS Other: All systems not noted in ROS Statement are negative. Past Medical History Past Medical History: GERD/Reflux Additional Past Medical History / Comment(s): Bulemia with purging-month ago, acne, endometriosis, hypothyroid History of Any Multi-Drug Resistant Organisms: None Reported Past Surgical History: No Surgical Hx Reported, Bladder Surgery Past Anesthesia/Blood Transfusion Reactions: No Reported Reaction Past Psychological History: Anxiety, Bipolar, Depression Smoking Status: Never smoker Past Alcohol Use History: Occasional Past Drug Use History: Marijuana - Past Family History Father Family Medical History: Diabetes Mellitus, Hypertension Additional Family Medical History / Comment(s): Father is alive at age 50 and has history of hypertension and diabetes. Mother Family Medical History: Hypertension Additional Family Medical History / Comment(s): Mother is age 52 and has history of hypertension and palpitations. Patient has 1 brother and 1 sister with no major medical problems. General Exam - General Exam Comments Initial Comments: Constitutional: NAD, AOX3, Pt has pleasant affect. HEENT: NC/AT, trachea midline, neck supple, no lymphadenopathy. Posterior pharynx non erythematous, without exudates. External ears appear normal, without discharge. Mucous membranes moist. Eyes PERRLA, EOM intact. There is no scleral icterus. No pallor noted. Cardiopulmonary: RRR, no murmurs, rubs or gallops, no JVD noted. Lungs CTAB in anterior and posterior larson. No peripheral edema. Chest pain reproducible on palpation. Abdominal exam: Abdomen soft and non-distended. Abdomen nontender to palpation in right upper quadrant, no guarding or rigidity, Yoder sign is negative. No other areas of abdominal tenderness.. Bowel sounds active in LLQ. No hepatosplenomegaly. No ecchymosis Neuro: CN II-XII grossly intact. No nuchal rigidity. No raccon eyes, no dee sign, no hemotympanum. No cervical spinal tenderness. MSK: No posterior calf tenderness bilaterally, homans sign negative bilaterally. Posterior tibialis and radial pulse +2 bilaterally. Sensation intact in upper and lower extremities. Full active ROM in upper and lower extremities, 5/5 stregnth. Limitations: no limitations Course Vital Signs 03/22/19 03/22/19 03/22/19 17:40 18:09 19:23 Temperature 98.8 F 99.4 F Pulse Rate 100 100 100 Respiratory 18 18 18 Rate Blood Pressure 163/117 156/103 140/96 O2 Sat by Pulse 97 99 99 Oximetry Medical Decision Making - Medical Decision Making 29-year-old female patient presents ED chief complaint of chest pain. Patient was reportedly seen by primary care provider who recommended that she come to ER. Patient reports that beginning approximately 12 PM she developed a right parasternal tightness sensation. Reports that the pain is reproducible upon palpation. Denies any shortness of breath. Patient is up with a deep inspiration actually makes pain better. Denies any personal cardiac history. Does have history of diabetes. Denies any other complaints. Patient vital signs stable, afebrile. Physical exam displayed: Chest pain in his. On palpation. Abdomen soft and non-distended. Abdomen nontender to palpation in right upper quadrant, no guarding or rigidity, Yoder sign is negative. No other areas of abdominal tenderness. Laboratory investigations revealed mild transaminitis. Troponin negative. D-dimer negative. UA negative. Patient reports that she has had elevated liver enzymes monitored by outpatient primary care provider). Patient had a ultrasound of her gallbladder/liver performed yesterday which displayed hepatic steatosis. No gallbladder abnormality. EKG nonischemic. Chest x-ray negative. Patient likely musculoskeletal in nature. Patient was discharged with outpatient follow-up with primary care provider. Case discussed with Dr. Umanzor. - Lab Data Result diagrams: 03/22/19 18:10 03/22/19 18:10 Lab Results 03/22/19 03/22/19 03/22/19 Range/Units 18:10 18:10 18:10 WBC 9.7 (3.8-10.6) k/uL RBC 5.15 (3.80-5.40) m/uL Hgb 14.3 (11.4-16.0) gm/dL Hct 42.8 (34.0-46.0) % MCV 83.2 (80.0-100.0) fL MCH 27.8 (25.0-35.0) pg MCHC 33.4 (31.0-37.0) g/dL RDW 13.7 (11.5-15.5) % Plt Count 251 (150-450) k/uL Neutrophils % 59 % Lymphocytes % 28 % Monocytes % 6 % Eosinophils % 2 % Basophils % 1 % Neutrophils # 5.7 (1.3-7.7) k/uL Lymphocytes # 2.7 (1.0-4.8) k/uL Monocytes # 0.6 (0-1.0) k/uL Eosinophils # 0.2 (0-0.7) k/uL Basophils # 0.1 (0-0.2) k/uL PT 9.7 (9.0-12.0) sec INR 0.9 (<1.2) APTT 28.2 (22.0-30.0) sec D-Dimer (<0.60) mg/L FEU Sodium 140 (137-145) mmol/L Potassium 4.1 (3.5-5.1) mmol/L Chloride 104 (98-107) mmol/L Carbon Dioxide 24 (22-30) mmol/L Anion Gap 12 mmol/L BUN 12 (7-17) mg/dL Creatinine 0.81 (0.52-1.04) mg/dL Est GFR (CKD-EPI)AfAm >90 (>60 ml/min/1.73 sqM) Est GFR (CKD-EPI)NonAf >90 (>60 ml/min/1.73 sqM) Glucose 105 H (74-99) mg/dL Calcium 10.0 (8.4-10.2) mg/dL Magnesium 1.8 (1.6-2.3) mg/dL Total Bilirubin 0.5 (0.2-1.3) mg/dL AST 100 H (14-36) U/L ALT 177 H (9-52) U/L Alkaline Phosphatase 131 H (38-126) U/L Troponin I (0.000-0.034) ng/mL Total Protein 8.2 (6.3-8.2) g/dL Albumin 4.9 (3.5-5.0) g/dL Lipase (23-300) U/L Urine Color Urine Appearance (Clear) Urine pH (5.0-8.0) Ur Specific [place] (1.001-1.035) Urine Protein (Negative) Urine Glucose (UA) (Negative) Urine Ketones (Negative) Urine Blood (Negative) Urine Nitrite (Negative) Urine Bilirubin (Negative) Urine Urobilinogen (<2.0) mg/dL Ur Leukocyte Esterase (Negative) Urine RBC (0-5) /hpf Urine WBC (0-5) /hpf Ur Squamous Epith Cells (0-4) /hpf Urine Mucus (None) /hpf Urine HCG, Qual (Not Detectd) 03/22/19 03/22/19 03/22/19 Range/Units 18:10 18:10 18:10 WBC (3.8-10.6) k/uL RBC (3.80-5.40) m/uL Hgb (11.4-16.0) gm/dL Hct (34.0-46.0) % MCV (80.0-100.0) fL MCH (25.0-35.0) pg MCHC (31.0-37.0) g/dL RDW (11.5-15.5) % Plt Count (150-450) k/uL Neutrophils % % Lymphocytes % % Monocytes % % Eosinophils % % Basophils % % Neutrophils # (1.3-7.7) k/uL Lymphocytes # (1.0-4.8) k/uL Monocytes # (0-1.0) k/uL Eosinophils # (0-0.7) k/uL Basophils # (0-0.2) k/uL PT (9.0-12.0) sec INR (<1.2) APTT (22.0-30.0) sec D-Dimer (<0.60) mg/L FEU Sodium (137-145) mmol/L Potassium (3.5-5.1) mmol/L Chloride (98-107) mmol/L Carbon Dioxide (22-30) mmol/L Anion Gap mmol/L BUN (7-17) mg/dL Creatinine (0.52-1.04) mg/dL Est GFR (CKD-EPI)AfAm (>60 ml/min/1.73 sqM) Est GFR (CKD-EPI)NonAf (>60 ml/min/1.73 sqM) Glucose (74-99) mg/dL Calcium (8.4-10.2) mg/dL Magnesium (1.6-2.3) mg/dL Total Bilirubin (0.2-1.3) mg/dL AST (14-36) U/L ALT (9-52) U/L Alkaline Phosphatase (38-126) U/L Troponin I <0.012 (0.000-0.034) ng/mL Total Protein (6.3-8.2) g/dL Albumin (3.5-5.0) g/dL Lipase (23-300) U/L Urine Color Yellow Urine Appearance Clear (Clear) Urine pH 5.5 (5.0-8.0) Ur Specific [place] 1.021 (1.001-1.035) Urine Protein 1+ H (Negative) Urine Glucose (UA) Negative (Negative) Urine Ketones Negative (Negative) Urine Blood Trace H (Negative) Urine Nitrite Negative (Negative) Urine Bilirubin Negative (Negative) Urine Urobilinogen <2.0 (<2.0) mg/dL Ur Leukocyte Esterase Trace H (Negative) Urine RBC 3 (0-5) /hpf Urine WBC 3 (0-5) /hpf Ur Squamous Epith Cells 1 (0-4) /hpf Urine Mucus Occasional H (None) /hpf Urine HCG, Qual Not Detected (Not Detectd) 03/22/19 03/22/19 Range/Units 18:10 18:10 WBC (3.8-10.6) k/uL RBC (3.80-5.40) m/uL Hgb (11.4-16.0) gm/dL Hct (34.0-46.0) % MCV (80.0-100.0) fL MCH (25.0-35.0) pg MCHC (31.0-37.0) g/dL RDW (11.5-15.5) % Plt Count (150-450) k/uL Neutrophils % % Lymphocytes % % Monocytes % % Eosinophils % % Basophils % % Neutrophils # (1.3-7.7) k/uL Lymphocytes # (1.0-4.8) k/uL Monocytes # (0-1.0) k/uL Eosinophils # (0-0.7) k/uL Basophils # (0-0.2) k/uL PT (9.0-12.0) sec INR (<1.2) APTT (22.0-30.0) sec D-Dimer 0.32 (<0.60) mg/L FEU Sodium (137-145) mmol/L Potassium (3.5-5.1) mmol/L Chloride (98-107) mmol/L Carbon Dioxide (22-30) mmol/L Anion Gap mmol/L BUN (7-17) mg/dL Creatinine (0.52-1.04) mg/dL Est GFR (CKD-EPI)AfAm (>60 ml/min/1.73 sqM) Est GFR (CKD-EPI)NonAf (>60 ml/min/1.73 sqM) Glucose (74-99) mg/dL Calcium (8.4-10.2) mg/dL Magnesium (1.6-2.3) mg/dL Total Bilirubin (0.2-1.3) mg/dL AST (14-36) U/L ALT (9-52) U/L Alkaline Phosphatase (38-126) U/L Troponin I (0.000-0.034) ng/mL Total Protein (6.3-8.2) g/dL Albumin (3.5-5.0) g/dL Lipase 158 (23-300) U/L Urine Color Urine Appearance (Clear) Urine pH (5.0-8.0) Ur Specific [place] (1.001-1.035) Urine Protein (Negative) Urine Glucose (UA) (Negative) Urine Ketones (Negative) Urine Blood (Negative) Urine Nitrite (Negative) Urine Bilirubin (Negative) Urine Urobilinogen (<2.0) mg/dL Ur Leukocyte Esterase (Negative) Urine RBC (0-5) /hpf Urine WBC (0-5) /hpf Ur Squamous Epith Cells (0-4) /hpf Urine Mucus (None) /hpf Urine HCG, Qual (Not Detectd) - EKG Data -: EKG Interpreted by Me (and Dr. Umanzor) EKG Comments: Ventricular rate 88, when necessary for 136, QTC 4, QT/QTC 378/457. Normal sinus rhythm, nonspecific T-wave abnormality. Abnormal EKG. No concern for acute ischemia. Disposition Clinical Impression: Chest pain, Atypical chest pain, Elevated liver enzymes Disposition: HOME SELF-CARE Condition: Stable Instructions (If sedation given, give patient instructions): Chest Pain (ED), Costochondritis (ED) Additional Instructions: Patient to adhere to previously discussed treatment plan and will take medication(s) as directed. Patient to follow up with PCP in 1-2 days. Patient to return to ED if symptoms do not improve. Follow-up with primary care provider tomorrow. Return to ER if condition worsens. Is patient prescribed a controlled substance at d/c from ED?: No Referrals: Sadiq Livingston MD [Primary Care Provider] - 1-2 days
--- NOTE | 2019-03-22 20:08 | ED ---
Medical Decision Making - Medical Decision Making pt pain resolved without intervention - Lab Data Result diagrams: 03/22/19 18:10 03/22/19 18:10 Lab Results 03/22/19 03/22/19 03/22/19 Range/Units 18:10 18:10 18:10 WBC 9.7 (3.8-10.6) k/uL RBC 5.15 (3.80-5.40) m/uL Hgb 14.3 (11.4-16.0) gm/dL Hct 42.8 (34.0-46.0) % MCV 83.2 (80.0-100.0) fL MCH 27.8 (25.0-35.0) pg MCHC 33.4 (31.0-37.0) g/dL RDW 13.7 (11.5-15.5) % Plt Count 251 (150-450) k/uL Neutrophils % 59 % Lymphocytes % 28 % Monocytes % 6 % Eosinophils % 2 % Basophils % 1 % Neutrophils # 5.7 (1.3-7.7) k/uL Lymphocytes # 2.7 (1.0-4.8) k/uL Monocytes # 0.6 (0-1.0) k/uL Eosinophils # 0.2 (0-0.7) k/uL Basophils # 0.1 (0-0.2) k/uL PT 9.7 (9.0-12.0) sec INR 0.9 (<1.2) APTT 28.2 (22.0-30.0) sec D-Dimer (<0.60) mg/L FEU Sodium 140 (137-145) mmol/L Potassium 4.1 (3.5-5.1) mmol/L Chloride 104 (98-107) mmol/L Carbon Dioxide 24 (22-30) mmol/L Anion Gap 12 mmol/L BUN 12 (7-17) mg/dL Creatinine 0.81 (0.52-1.04) mg/dL Est GFR (CKD-EPI)AfAm >90 (>60 ml/min/1.73 sqM) Est GFR (CKD-EPI)NonAf >90 (>60 ml/min/1.73 sqM) Glucose 105 H (74-99) mg/dL Calcium 10.0 (8.4-10.2) mg/dL Magnesium 1.8 (1.6-2.3) mg/dL Total Bilirubin 0.5 (0.2-1.3) mg/dL AST 100 H (14-36) U/L ALT 177 H (9-52) U/L Alkaline Phosphatase 131 H (38-126) U/L Troponin I (0.000-0.034) ng/mL Total Protein 8.2 (6.3-8.2) g/dL Albumin 4.9 (3.5-5.0) g/dL Lipase (23-300) U/L Urine Color Urine Appearance (Clear) Urine pH (5.0-8.0) Ur Specific [place] (1.001-1.035) Urine Protein (Negative) Urine Glucose (UA) (Negative) Urine Ketones (Negative) Urine Blood (Negative) Urine Nitrite (Negative) Urine Bilirubin (Negative) Urine Urobilinogen (<2.0) mg/dL Ur Leukocyte Esterase (Negative) Urine RBC (0-5) /hpf Urine WBC (0-5) /hpf Ur Squamous Epith Cells (0-4) /hpf Urine Mucus (None) /hpf Urine HCG, Qual (Not Detectd) 03/22/19 03/22/19 03/22/19 Range/Units 18:10 18:10 18:10 WBC (3.8-10.6) k/uL RBC (3.80-5.40) m/uL Hgb (11.4-16.0) gm/dL Hct (34.0-46.0) % MCV (80.0-100.0) fL MCH (25.0-35.0) pg MCHC (31.0-37.0) g/dL RDW (11.5-15.5) % Plt Count (150-450) k/uL Neutrophils % % Lymphocytes % % Monocytes % % Eosinophils % % Basophils % % Neutrophils # (1.3-7.7) k/uL Lymphocytes # (1.0-4.8) k/uL Monocytes # (0-1.0) k/uL Eosinophils # (0-0.7) k/uL Basophils # (0-0.2) k/uL PT (9.0-12.0) sec INR (<1.2) APTT (22.0-30.0) sec D-Dimer (<0.60) mg/L FEU Sodium (137-145) mmol/L Potassium (3.5-5.1) mmol/L Chloride (98-107) mmol/L Carbon Dioxide (22-30) mmol/L Anion Gap mmol/L BUN (7-17) mg/dL Creatinine (0.52-1.04) mg/dL Est GFR (CKD-EPI)AfAm (>60 ml/min/1.73 sqM) Est GFR (CKD-EPI)NonAf (>60 ml/min/1.73 sqM) Glucose (74-99) mg/dL Calcium (8.4-10.2) mg/dL Magnesium (1.6-2.3) mg/dL Total Bilirubin (0.2-1.3) mg/dL AST (14-36) U/L ALT (9-52) U/L Alkaline Phosphatase (38-126) U/L Troponin I <0.012 (0.000-0.034) ng/mL Total Protein (6.3-8.2) g/dL Albumin (3.5-5.0) g/dL Lipase (23-300) U/L Urine Color Yellow Urine Appearance Clear (Clear) Urine pH 5.5 (5.0-8.0) Ur Specific [place] 1.021 (1.001-1.035) Urine Protein 1+ H (Negative) Urine Glucose (UA) Negative (Negative) Urine Ketones Negative (Negative) Urine Blood Trace H (Negative) Urine Nitrite Negative (Negative) Urine Bilirubin Negative (Negative) Urine Urobilinogen <2.0 (<2.0) mg/dL Ur Leukocyte Esterase Trace H (Negative) Urine RBC 3 (0-5) /hpf Urine WBC 3 (0-5) /hpf Ur Squamous Epith Cells 1 (0-4) /hpf Urine Mucus Occasional H (None) /hpf Urine HCG, Qual Not Detected (Not Detectd) 03/22/19 03/22/19 Range/Units 18:10 18:10 WBC (3.8-10.6) k/uL RBC (3.80-5.40) m/uL Hgb (11.4-16.0) gm/dL Hct (34.0-46.0) % MCV (80.0-100.0) fL MCH (25.0-35.0) pg MCHC (31.0-37.0) g/dL RDW (11.5-15.5) % Plt Count (150-450) k/uL Neutrophils % % Lymphocytes % % Monocytes % % Eosinophils % % Basophils % % Neutrophils # (1.3-7.7) k/uL Lymphocytes # (1.0-4.8) k/uL Monocytes # (0-1.0) k/uL Eosinophils # (0-0.7) k/uL Basophils # (0-0.2) k/uL PT (9.0-12.0) sec INR (<1.2) APTT (22.0-30.0) sec D-Dimer 0.32 (<0.60) mg/L FEU Sodium (137-145) mmol/L Potassium (3.5-5.1) mmol/L Chloride (98-107) mmol/L Carbon Dioxide (22-30) mmol/L Anion Gap mmol/L BUN (7-17) mg/dL Creatinine (0.52-1.04) mg/dL Est GFR (CKD-EPI)AfAm (>60 ml/min/1.73 sqM) Est GFR (CKD-EPI)NonAf (>60 ml/min/1.73 sqM) Glucose (74-99) mg/dL Calcium (8.4-10.2) mg/dL Magnesium (1.6-2.3) mg/dL Total Bilirubin (0.2-1.3) mg/dL AST (14-36) U/L ALT (9-52) U/L Alkaline Phosphatase (38-126) U/L Troponin I (0.000-0.034) ng/mL Total Protein (6.3-8.2) g/dL Albumin (3.5-5.0) g/dL Lipase 158 (23-300) U/L Urine Color Urine Appearance (Clear) Urine pH (5.0-8.0) Ur Specific [place] (1.001-1.035) Urine Protein (Negative) Urine Glucose (UA) (Negative) Urine Ketones (Negative) Urine Blood (Negative) Urine Nitrite (Negative) Urine Bilirubin (Negative) Urine Urobilinogen (<2.0) mg/dL Ur Leukocyte Esterase (Negative) Urine RBC (0-5) /hpf Urine WBC (0-5) /hpf Ur Squamous Epith Cells (0-4) /hpf Urine Mucus (None) /hpf Urine HCG, Qual (Not Detectd) Disposition Clinical Impression: Chest pain, Atypical chest pain, Elevated liver enzymes Disposition: HOME SELF-CARE Condition: Stable Instructions (If sedation given, give patient instructions): Chest Pain (ED), Costochondritis (ED) Additional Instructions: Patient to adhere to previously discussed treatment plan and will take medication(s) as directed. Patient to follow up with PCP in 1-2 days. Patient to return to ED if symptoms do not improve. Follow-up with primary care provider tomorrow. Return to ER if condition worsens. Is patient prescribed a controlled substance at d/c from ED?: No Referrals: Sadiq Livingston MD [Primary Care Provider] - 1-2 days
[2019-03-22 20:18] VITALS: BP 140/98; PULSE 97; RESP 17
== END 2019-03-22 20:17 | disposition home or self-care (01) ==
LOC: EC 17:29
DX: R07.89 Other chest pain (principal); R74.8 Abnormal levels of other serum enzymes; K21.9 Gastro-esophageal reflux disease without esophagitis; F41.9 Anxiety disorder, unspecified; F31.9 Bipolar disorder, unspecified; E03.9 Hypothyroidism, unspecified; E11.9 Type 2 diabetes mellitus without complications; Z79.890 Hormone replacement therapy; Z79.51 Long term (current) use of inhaled steroids; Z79.899 Other long term (current) drug therapy
CPT/HCPCS: 36415; 71046; 80053; 81001; 81025; 83690; 83735; 84484; 85025; 85379; 85610; 85730; 93005; 99285

== ENCOUNTER → 2019-04-08 | Outpatient (CLI) | payer MEDICAID ==
--- NOTE | 2019-04-09 12:52 | US ---
EXAMINATION TYPE: US pelvis complete transvag DATE OF EXAM: 04/08/2019 COMPARISON: 03/21/2019 CLINICAL HISTORY: 29-year-old female N83.201 right ovarian cyst. Follow up right ovarian cyst, LMP wa s in January, patient is on depo resulting in irregular menses. TECHNIQUE: Transabdominal sonographic images of the pelvis were acquired. Transvaginal sonographic images were medically necessary to better assess the following anatomy: Endometrium, ovaries Date of LMP: January 2019, G0 FINDINGS: EXAM MEASUREMENTS: Uterus: 7.8 x 4.0 x 3.5 cm Endometrial Stripe: 5.3 mm Right Ovary: 2.9 x 1.9 x 2.0 cm 1. Uterus: Anteverted. No discrete mass or lesions seen. Couple tiny cervical nabothian cysts are demonstrated. 2. Endometrium: wnl 3. Right Ovary: A 1.5 cm hypoechoic to cystic lesion with peripheral vascularity is demonstrated. Rig ht ovarian cyst previously measured 4.3 cm on 03/21/2019. 4. Left Ovary: Obscured by overlying bowel gas 5. Bilateral Adnexa: wnl 6. Posterior cul-de-sac: no free fluid IMPRESSION: 1. Suspect a 1.5 cm corpus luteum in the right ovary. This is smaller as compared to the 4.3 cm cyst seen on 03/21/2019. Findings suggest normal physiologic change. 2. Left ovary could not be visualized at this time.
== END | disposition home or self-care (01) ==
LOC: RADUSWWP 14:07
PROVIDERS: ATTEND Family Medicine
DX: N83.201 Unspecified ovarian cyst, right side (principal)
CPT/HCPCS: 76830; 76856

== ENCOUNTER → 2021-07-02 | Outpatient (CLI) | payer MEDICAID ==
[2021-07-02 10:57] LABS: Basophils # (A) 0.1 k/uL (0-0.2); Basophils % (A) 1 %; Eosinophils # (A) 0.3 k/uL (0-0.7); Eosinophils % (A) 3 %; HCT 48.5 % (34.0-46.0); HGB 14.8 gm/dL (11.4-16.0); Hypochromasia Slight; Lymphocytes # (A) 3.4 k/uL (1.0-4.8); Lymphocytes % (A) 33 %; MCH 26.7 pg (25.0-35.0); MCHC 30.5 g/dL (31.0-37.0); MCV 87.4 fL (80.0-100.0); Mean Platelet Volume 6.6; Monocytes # (A) 0.6 k/uL (0-1.0); Monocytes % (A) 5 %; Neutrophils # (A) 5.6 k/uL (1.3-7.7); Neutrophils % (A) 55 %; Platelet Count 344 k/uL (150-450); RBC 5.55 m/uL (3.80-5.40); RDW 12.9 % (11.5-15.5); WBC 10.2 k/uL (3.8-10.6)
[2021-07-02 11:13] LABS: ALT 95 U/L (4-34); AST 54 U/L (14-36); African American GFR (CKD) >90 (>60 ml/min/1.73 sqM); Albumin 4.8 g/dL (3.5-5.0); Albumin/Globulin Ratio 1.4; Alkaline Phosphatase 98 U/L (38-126); Anion Gap 11 mmol/L; Blood Urea Nitrogen 11 mg/dL (7-17); Calcium 10.2 mg/dL (8.4-10.2); Carbon Dioxide 24 mmol/L (22-30); Chloride 103 mmol/L (98-107); Globulin 3.4 g/dL; Glucose 116 mg/dL (74-99); Non-African American GFR(CKD) 83 (>60 ml/min/1.73 sqM); Sodium 138 mmol/L (137-145); Total Bilirubin 0.8 mg/dL (0.2-1.3); Total Protein 8.2 g/dL (6.3-8.2)
--- NOTE | 2021-07-02 12:33 | CT ---
EXAMINATION TYPE: CT abdomen pelvis w con DATE OF EXAM: 07/02/2021 COMPARISON: 09/03/2015 HISTORY: Pelvic pain CT DLP: 1190.9 mGycm CONTRAST: CT scan of the abdomen and pelvis is performed with Oral Contrast and with IV Contrast, patient injec wally with 100 mL of Isovue 300. FINDINGS: LUNG BASES-: No visible nodule. No infiltrate. LIVER/GB: No calcified gallstones. Hepatic steatosis noted. No space occupying hepatic lesion. Barry iary tree is of normal caliber. PANCREAS: No inflammation. No distinct mass. SPLEEN: No splenic enlargement. No lesion seen. ADRENALS: No nodule. No thickening. KIDNEYS/BLADDER: No hydronephrosis. No nephrolithiasis. No distinct renal mass. Urinary bladder g rossly unremarkable. BOWEL: Normal appendix. Normal bowel caliber. No inflammation. GENITAL ORGANS: No gross abnormality. LYMPH NODES: No greater than 1cm abdominal or pelvic lymph nodes are appreciated. AORTA: No significant abnormality. OSSEOUS STRUCTURES: No significant abnormality is seen. OTHER: No significant additional abnormality is seen. IMPRESSION: 1. No acute intra-abdominal process seen. Hepatic steatosis noted.
== END | disposition home or self-care (01) ==
LOC: RADCTMAIN 09:45
PROVIDERS: ATTEND Family Medicine
DX: K76.0 Fatty (change of) liver, not elsewhere classified (principal)
CPT/HCPCS: 80053; 85025; 74177; 36415; Q9967

== ENCOUNTER 2021-07-20 07:53 | Day surgery (SDC) | payer MEDICAID ==
[2021-07-19 09:50] VITALS: BMI 33.2
[2021-07-20] MEDS: LACTATED RINGERS 1,000 ML IV SCH ×2 (08:06→09:08)
[2021-07-20 08:15] VITALS: RESP 16; TEMP 98
[2021-07-20 08:32] LABS: Glucose,Whole Blood 101 mg/dL (75-99)
[2021-07-20] MEDS ORDERED: LIDOCAINE 1% INJ 10MG/ML (20 ML MDV) ONE (09:09)
[2021-07-20] MEDS ORDERED: PROPOFOL 10 MG/ML 20 ML VIAL IV ONE (09:09)
--- NOTE | 2021-07-20 09:17 | P.PCN ---
Date of Procedure: 07/20/21 Procedure(s) Performed: BRIEF HISTORY: Patient is a 31-year-old, pleasant, female scheduled for an upper endoscopy as a part of evaluation of long-standing history of GERD. Presently on omeprazole 40 mg morning and Pepcid at bedtime.. PROCEDURE PERFORMED: Esophagogastroduodenoscopy with biopsy. PREOPERATIVE DIAGNOSIS: GERD. IV sedation per anesthesia. PROCEDURE: After informed consent was obtained, the patient was brought into the endoscopy unit. IV sedation was administered by Anesthesia under continuous monitoring. Initially the Olympus GIF-140 video endoscope was inserted into the mouth. Esophagus intubated without any difficulty. It was gradually advanced into the stomach and duodenum and carefully examined. The bulb and the second part of the duodenum appeared normal. The scope at this time was withdrawn to the stomach, adequately insufflated with air, and upon careful examination, mucosa of the antrum, had mild erythema diffusely this was biopsied. The body, cardia and the fundus appeared normal. Small amount of retained food in the stomach. Sliding type hiatal hernia noted. The scope was then withdrawn into the esophagus. The GE junction was located at 39 cm from the incisors. The esophagus appeared normal. There were no ulcerations seen but there was once a fissure erosions consistent with LA grade a reflux esophagitis. Rest of esophagus appeared normal and the patient tolerated the procedure well. IMPRESSION: 1. Small hiatal hernia and a superficial erosion at the GE junction consistent with LA grade A reflux esophagitis. 2. Mild antral gastritis. RECOMMENDATIONS: The findings of this examination were discussed with the patient as well as a family.. Advised to follow with the biopsy results. She was advised to continue with Protonix 40 mg in the morning and Pepcid at bedtime and follow antireflux measures.
[2021-07-20 09:41] VITALS: BP 125/84; PULSE 71
== END 2021-07-20 10:04 | disposition home or self-care (01) ==
LOC: ORWHC2ENDO 07:53
PROVIDERS: ATTEND Internal Medicine Gastroenterology
DX: K29.50 Unspecified chronic gastritis without bleeding (principal); K31.7 Polyp of stomach and duodenum; K21.9 Gastro-esophageal reflux disease without esophagitis; K44.9 Diaphragmatic hernia without obstruction or gangrene; K21.00 Gastro-esophageal reflux disease with esophagitis, without bleeding; E11.9 Type 2 diabetes mellitus without complications; T88.3XXA Malignant hyperthermia due to anesthesia, initial encounter; E66.9 Obesity, unspecified; Z68.33 Body mass index [BMI] 33.0-33.9, adult; F50.2 Bulimia nervosa; Z79.890 Hormone replacement therapy; Z79.899 Other long term (current) drug therapy
CPT/HCPCS: 81025; 88305; 43239; J2001; J2704

== ENCOUNTER → 2022-04-22 | Outpatient (CLI) | payer SELFPAY ==
--- NOTE | 2022-04-22 10:17 | US ---
EXAMINATION TYPE: US abdomen complete DATE OF EXAM: 04/22/2022 COMPARISON: CT & US CLINICAL HISTORY: R10.9 UNSPECIFIED ABDOMINAL PAIN. Pt states generalized ABD pain TECHNIQUE: Multiple sonographic images of the abdomen are obtained. FINDINGS: EXAM MEASUREMENTS: Liver Length: 19.8 cm Gallbladder Wall: 0.2 cm CBD: 0.4 cm Spleen: 9.9 cm Right Kidney: 11.2 x 4.2 x 5.2 cm Left Kidney: 10.3 x 5.0 x 5.3 cm ACTUARIAL MATHEMATICIAN NOTES: Pancreas: wnl Liver: Enlarged, heterogeneous, difficult to penetrate Gallbladder: wnl Evidence for sonographic Yoder's sign: No CBD: wnl Spleen: wnl Right Kidney: wnl Left Kidney: wnl Upper IVC: wnl Abd Aorta: wnl IMPRESSION: 1. Hepatomegaly with moderate fatty infiltration of the liver.
== END | disposition home or self-care (01) ==
LOC: RADUSWWP 09:43
PROVIDERS: ATTEND Family Medicine
DX: K76.0 Fatty (change of) liver, not elsewhere classified (principal); R16.0 Hepatomegaly, not elsewhere classified
CPT/HCPCS: 76700

== ENCOUNTER 2022-09-10 06:55 | Emergency (ER) | payer OTHER ==
--- NOTE | 2022-09-10 07:14 | ED ---
General Adult HPI - General Chief complaint: Urogenital Stated complaint: Lower back/Kidney Pain Time Seen by Provider: 09/10/22 07:00 Source: patient Mode of arrival: ambulatory Limitations: no limitations - History of Present Illness Initial comments: Dictation was produced using [employer] dictation software. please excuse any grammatical, word or spelling errors. Chief Complaint: 32-year-old female presents with bilateral flank pain History of Present Illness: Is a 32-year-old female she says "I have bilateral kidney pain." Was. Patient states that for the last 3-4 days she's had bilateral kidney pain. She went to see her primary care physician 3 days ago was evaluated for urinalysis. She was not given antibiotics and told that her weight on cultures. Patient denies any fever. States that the pain is waxing and waning. No history of kidney stones. Denies any urinary abnormalities. She was given a referral to urologist however was unable to have any follow-up within her reasonable time. Denies any abdominal pain. Patient has multiple comorbidities including diabetes and hypertension. She has no known history of kidney disease. The ROS documented in this emergency department record has been reviewed and confirmed by me. Those systems with pertinent positive or negative responses have been documented in the HPI. All other systems are other negative and/or noncontributory. - Related Data Home Medications Medication Instructions Recorded Confirmed Omeprazole 20 mg PO DAILY 08/23/16 07/20/21 busPIRone HCl [Buspar] 10 mg PO BID 08/23/16 07/20/21 DULoxetine HCL [Cymbalta] 60 mg PO DAILY 01/09/19 07/20/21 Levothyroxine Sodium [Synthroid] 50 mcg PO DAILY 01/09/19 07/20/21 OLANZapine [ZyPREXA] 10 mg PO HS 01/09/19 07/20/21 traZODone HCL 50 mg PO HS 01/09/19 07/20/21 Dapagliflozin Propanediol [Farxiga] 5 mg PO DAILY 07/19/21 07/20/21 Famotidine 20 mg PO HS 07/19/21 07/20/21 Multivitamins, Thera [Multivitamin 1 tab PO DAILY 07/19/21 07/19/21 (formulary)] metFORMIN HCL 500 mg PO DAILY 07/19/21 07/20/21 Previous Rx's Medication Instructions Recorded Ondansetron Odt [Zofran Odt] 4 mg PO Q8HR PRN #10 tab 03/24/22 Allergies Allergy/AdvReac Type Severity Reaction Status Date / Time No Known Allergies Allergy Verified 09/10/22 06:57 Review of Systems ROS Statement: Those systems with pertinent positive or pertinent negative responses have been documented in the HPI. ROS Other: All systems not noted in ROS Statement are negative. Past Medical History Past Medical History: GERD/Reflux Additional Past Medical History / Comment(s): Bulemia with purging-month ago, acne, endometriosis, hypothyroid History of Any Multi-Drug Resistant Organisms: None Reported Past Surgical History: Bladder Surgery Past Anesthesia/Blood Transfusion Reactions: No Reported Reaction Past Psychological History: Anxiety, Bipolar, Depression Smoking Status: Never smoker Past Alcohol Use History: Occasional Past Drug Use History: Marijuana - Past Family History Father Family Medical History: Diabetes Mellitus, Hypertension Additional Family Medical History / Comment(s): Father is alive at age 50 and has history of hypertension and diabetes. Mother Family Medical History: Hypertension Additional Family Medical History / Comment(s): Mother is age 52 and has history of hypertension and palpitations. Patient has 1 brother and 1 sister with no major medical problems. General Exam - General Exam Comments Initial Comments: PHYSICAL EXAM: General Impression: Alert and oriented x3, not in acute distress HEENT: Normocephalic atraumatic, extra-ocular movements intact, pupils equal and reactive to light bilaterally, mucous membranes moist. Cardiovascular: Heart regular rate and rhythm Chest: Able to complete full sentences, no retractions, no tachypnea Abdomen: abdomen soft, non-tender, non-distended, no organomegaly, mild bilateral CVA tenderness Musculoskeletal: Pulses present and equal in all extremities, no peripheral edema Motor: no focal deficits noted Neurological: CN II-XII grossly intact, no focal motor or sensory deficits noted Skin: Intact with no visualized rashes Psych: Normal affect and mood Limitations: no limitations Course Vital Signs 09/10/22 06:57 Temperature 98.1 F Pulse Rate 87 Respiratory 18 Rate Blood Pressure 169/104 O2 Sat by Pulse 100 Oximetry Medical Decision Making - Medical Decision Making Was pt. sent in by a medical professional or institution (, PA, PIPE TESTER, urgent care, hospital, or skilled nursing...) When possible be specific @ -No Did you speak to anyone other than the patient for history (EMS, parent, family, police, friend...)? What history was obtained from this source @ -No Did you review nursing and triage notes (agree or disagree)? Why? @ -I reviewed and agree with nursing and triage notes Were old charts reviewed (outside hosp., previous admission, EMS record, old EKG, old radiological studies, urgent care reports/EKG's, skilled nursing records)? Report findings @ -micro-biology urine results were reviewed from 2 days ago Differential Diagnosis (chest pain, altered mental status, abdominal pain women, abdominal pain men, vaginal bleeding, musculoskeletal, weakness, fever, dyspnea, syncope, headache, dizziness, GI bleed, back pain, seizure, CVA, palpatations, mental health)? @ -Differential Abdominal Pain Women: Appendicitis, Cholecystitis, diverticulosis, ischemic bowel, pancreatitis, hepatitis, UTI, gastroenteritis, AAA, incarcerated hernia, bowel obstruction, constipation, inflammatory bowel, hepatitis, peptic ulcer disease, splenic infarction, perforated viscus, vulvitis, ovarian torsion, PID, kidney stone, placenta abruption, this is not meant to be an all-inclusive list EKG interpreted by me (3pts min.). @ -None done X-rays interpreted by me (1pt min.). @ -None done CT interpreted by me (1pt min.). @ -None done U/S interpreted by me (1pt. min.). @ -no acute processes What testing was considered but not performed or refused? (CT, X-rays, U/S, lab s)? Why? @ -None What meds were considered but not given or refused? Why? @ -None Did you discuss the management of the patient with other professionals (professionals i.e. , PA, PIPE TESTER, lab, RT, psych nurse, director social service, regional training manager, teacher, school services officer, caseworker)? Give summary @ -No Was smoking cessation discussed for >3mins.? @ -No Was critical care preformed (if so, how long)? @ -No Were there social determinants of health that impacted care today? How? (Homelessness, low income, unemployed, alcoholism, drug addiction, transportation, low edu. Level, literacy, decrease access to med. care, [facility], rehab)? @ -No Was there de-escalation of care discussed even if they declined (Discuss DNR or withdrawal of care, Hospice)? DNR status @ -No What co-morbidities impacted this encounter? (DM, HTN, Smoking, COPD, CAD, Cancer, CVA, ARF, Chemo, Hep., AIDS, mental health diagnosis, sleep apnea, morbid obesity)? @ -None Was patient admitted / discharged? Hospital course, mention meds given and route, prescriptions, significant lab abnormalities, going to OR and other pertinent info. @ -32-year-old female presents with bilateral flank pain. Abdomen unremarkable. The function is within acceptable limits. No blood in the urine. No evidence of urinary tract infection. Ultrasound of the kidneys are unremarkable. At this point no obvious source patient's symptoms however she has no high-risk features. Patient discharged with follow-up with primary care doctor. Undiagnosed new problem with uncertain prognosis? @ -No Drug Therapy requiring intensive monitoring for toxicity (Heparin, Nitro, Insulin, Cardizem)? @ -No Were any procedures done? @ -No Diagnosis/symptom? Acute, or Chronic, or Acute on Chronic? Uncomplicated (w ithout systemic symptoms) or Complicated (systemic symptoms)? @ -1. Acute unconjugated bilateral flank pain Side effects of treatment? @ -No Exacerbation, Progression, or Severe Exacerbation? @ -No Poses a threat to life or bodily function? How? (Chest pain, [place], [place], pneumonia, PE, COPD, DKA, ARF, appy, cholecystitis, CVA, Diverticulitis, Homicidal, Suicidal, threat to staff... and all critical care pts) @ -No - Lab Data Result diagrams: 09/10/22 07:23 09/10/22 07:23 Lab Results 09/10/22 09/10/22 09/10/22 Range/Units 07:23 07: 07:23 WBC 9.4 (3.8-10.6) k/uL RBC 5.26 (3.80-5.40) m/uL Hgb 14.2 (11.4-16.0) gm/dL Hct 44.3 (34.0-46.0) % MCV 84.3 (80.0-100.0) fL MCH 27.0 (25.0-35.0) pg MCHC 32.0 (31.0-37.0) g/dL RDW 13.5 (11.5-15.5) % Plt Count 372 (150-450) k/uL MPV 6.8 Neutrophils % 61 % Lymphocytes % 29 % Monocytes % 5 % Eosinophils % 2 % Basophils % 1 % Neutrophils # 5.8 (1.3-7.7) k/uL Lymphocytes # 2.7 (1.0-4.8) k/uL Monocytes # 0.5 (0-1.0) k/uL Eosinophils # 0.2 (0-0.7) k/uL Basophils # 0.1 (0-0.2) k/uL Sodium (137-145) mmol/L Potassium (3.5-5.1) mmol/L Chloride (98-107) mmol/L Carbon Dioxide (22-30) mmol/L Anion Gap mmol/L BUN (7-17) mg/dL Creatinine (0.52-1.04) mg/dL Est GFR (CKD-EPI)AfAm (>60 ml/min/1.73 sqM) Est GFR (CKD-EPI)NonAf (>60 ml/min/1.73 sqM) Glucose (74-99) mg/dL Calcium (8.4-10.2) mg/dL Urine Color Yellow Urine Appearance Clear (Clear) Urine pH 5.5 (5.0-8.0) Ur Specific [place] 1.017 (1.001-1.035) Urine Protein Trace H (Negative) Urine Glucose (UA) 4+ H (Negative) Urine Ketones Negative (Negative) Urine Blood Negative (Negative) Urine Nitrite Negative (Negative) Urine Bilirubin Negative (Negative) Urine Urobilinogen <2.0 (<2.0) mg/dL Ur Leukocyte Esterase Negative (Negative) Urine HCG, Qual Not Detected (Not Detectd) 09/10/22 Range/Units 07:23 WBC (3.8-10.6) k/uL RBC (3.80-5.40) m/uL Hgb (11.4-16.0) gm/dL Hct (34.0-46.0) % MCV (80.0-100.0) fL MCH (25.0-35.0) pg MCHC (31.0-37.0) g/dL RDW (11.5-15.5) % Plt Count (150-450) k/uL MPV Neutrophils % % Lymphocytes % % Monocytes % % Eosinophils % % Basophils % % Neutrophils # (1.3-7.7) k/uL Lymphocytes # (1.0-4.8) k/uL Monocytes # (0-1.0) k/uL Eosinophils # (0-0.7) k/uL Basophils # (0-0.2) k/uL Sodium 139 (137-145) mmol/L Potassium 4.1 (3.5-5.1) mmol/L Chloride 100 (98-107) mmol/L Carbon Dioxide 26 (22-30) mmol/L Anion Gap 13 mmol/L BUN 12 (7-17) mg/dL Creatinine 0.79 (0.52-1.04) mg/dL Est GFR (CKD-EPI)AfAm >90 (>60 ml/min/1.73 sqM) Est GFR (CKD-EPI)NonAf >90 (>60 ml/min/1.73 sqM) Glucose 104 H (74-99) mg/dL Calcium 9.7 (8.4-10.2) mg/dL Urine Color Urine Appearance (Clear) Urine pH (5.0-8.0) Ur Specific [place] (1.001-1.035) Urine Protein (Negative) Urine Glucose (UA) (Negative) Urine Ketones (Negative) Urine Blood (Negative) Urine Nitrite (Negative) Urine Bilirubin (Negative) Urine Urobilinogen (<2.0) mg/dL Ur Leukocyte Esterase (Negative) Urine HCG, Qual (Not Detectd) Disposition Clinical Impression: Flank pain Disposition: HOME SELF-CARE Condition: Fair Instructions (If sedation given, give patient instructions): Flank Pain (ED) Is patient prescribed a controlled substance at d/c from ED?: No Referrals: Sadiq Livingston MD [Primary Care Provider] - 1-2 days Time of Disposition: 09:04
[2022-09-10 07:43] LABS: Appearance,Urine Clear (Clear); Basophils # (A) 0.1 k/uL (0-0.2); Basophils % (A) 1 %; Bilirubin,Urine Negative (Negative); Blood,Urine Negative (Negative); Color,Urine Yellow; Eosinophils # (A) 0.2 k/uL (0-0.7); Eosinophils % (A) 2 %; Glucose,Urine (UA) 4+ (Negative); HCT 44.3 % (34.0-46.0); HGB 14.2 gm/dL (11.4-16.0); Ketones,Urine Negative (Negative); Leukocyte Esterase,Urine Negative (Negative); Lymphocytes # (A) 2.7 k/uL (1.0-4.8); Lymphocytes % (A) 29 %; MCV 84.3 fL (80.0-100.0); Mean Platelet Volume 6.8; Monocytes # (A) 0.5 k/uL (0-1.0); Monocytes % (A) 5 %; Neutrophils # (A) 5.8 k/uL (1.3-7.7); Neutrophils % (A) 61 %; Nitrite,Urine Negative (Negative); PH, Urine 5.5 (5.0-8.0); Platelet Count 372 k/uL (150-450); Protein,Urine Trace (Negative); RBC 5.26 m/uL (3.80-5.40); RDW 13.5 % (11.5-15.5); Specific Gravity,Urine 1.017 (1.001-1.035); Urobilinogen,Urine <2.0 mg/dL (<2.0); WBC 9.4 k/uL (3.8-10.6)
[2022-09-10 07:55] LABS: African American GFR (CKD) >90 (>60 ml/min/1.73 sqM); Anion Gap 13 mmol/L; Blood Urea Nitrogen 12 mg/dL (7-17); Calcium 9.7 mg/dL (8.4-10.2); Carbon Dioxide 26 mmol/L (22-30); Chloride 100 mmol/L (98-107); Glucose 104 mg/dL (74-99); Non-African American GFR(CKD) >90 (>60 ml/min/1.73 sqM); Potassium 4.1 mmol/L (3.5-5.1); Sodium 139 mmol/L (137-145)
--- NOTE | 2022-09-10 09:01 | US ---
EXAMINATION TYPE: US kidneys/renal and bladder DATE OF EXAM: 09/10/2022 COMPARISON: NONE CLINICAL INDICATION: Female, 32 years old with history of flank pain; Lower back pain. EXAM MEASUREMENTS: Right Kidney: 10.3 x 4.3 x 4.2 cm Left Kidney: 10 x 4.8 x 5.2 cm Right Kidney: No hydronephrosis or masses seen Left Kidney: No hydronephrosis or masses seen Bladder: Echogenic area seen posterior left .9 cm. Bilateral Jets seen: Right only. There is no evidence for hydronephrosis at this point in time. No nephrolithiasis is seen. No darren s are identified. The urinary bladder is anechoic. Bilateral ureteral jets are seen. IMPRESSION: Echogenic focus within the urinary bladder measuring 9 mm may reflect urinary bladder calculus. There is no hydronephrosis identified.
[2022-09-10] MEDS ORDERED: traMADol 50 MG STARTER PACK 3 TAB BTL PO STA (09:09)
[2022-09-10 09:22] VITALS: BP 131/94; PULSE 81; RESP 16; TEMP 97.9
== END 2022-09-10 09:22 | disposition home or self-care (01) ==
LOC: EC 06:55
DX: R10.9 Unspecified abdominal pain (principal); I10 Essential (primary) hypertension; E03.9 Hypothyroidism, unspecified; E11.9 Type 2 diabetes mellitus without complications; K21.9 Gastro-esophageal reflux disease without esophagitis; F31.9 Bipolar disorder, unspecified; F41.9 Anxiety disorder, unspecified; Z79.84 Long term (current) use of oral hypoglycemic drugs; Z79.899 Other long term (current) drug therapy; Z79.890 Hormone replacement therapy
CPT/HCPCS: 36415; 76770; 80048; 81003; 81025; 85025; 99284

== ENCOUNTER 2022-11-24 09:05 | Emergency (ER) | payer BC, OTHER ==
[2022-11-24 09:10] VITALS: RESP 18
--- NOTE | 2022-11-24 09:35 | ED ---
General Adult HPI - General Chief complaint: Shortness of Breath Stated complaint: Chest tightness Time Seen by Provider: 11/24/22 09:10 Source: patient, RN notes reviewed, old records reviewed Mode of arrival: ambulatory Limitations: no limitations - History of Present Illness Initial comments: This is a 32-year-old female who presents emergency Department stating that 6 weeks ago and was diagnosed with bronchitis and put on steroids. Patient states the nurse practitioner then told her she had developed pneumonia and recently put her on antibiotics. Patient states she just finished antibiotics. Patient states the last 2 days she's had right upper chest tightness and she went and saw the nurse practitioner today who wanted to come to be evaluated emergency department. Patient denies any recent fever or chills. Patient states she has been lightheaded at times. Patient denies any abdominal pain or back pain. Patient states she does occasionally feel like she is short of breath but it typically occurs with her coughing fits which she states has not improved since she's been diagnosed with bronchitis. Patient states that her last dose of steroids was Monday - Related Data Home Medications Medication Instructions Recorded Confirmed Levothyroxine Sodium [Synthroid] 50 mcg PO DAILY 01/09/19 11/24/22 Multivitamins, Thera [Multivitamin 1 tab PO DAILY 07/19/21 11/24/22 (formulary)] metFORMIN HCL 500 mg PO BID 07/19/21 11/24/22 Biotin [Biotin Disolve] 5,000 mcg PO DAILY 11/24/22 11/24/22 Cariprazine HCl [Vraylar] 3 mg PO HS 11/24/22 11/24/22 Cholecalciferol [Vitamin D3 (25 25 mcg PO DAILY 11/24/22 11/24/22 Mcg = 1000 Iu)] Ergocalciferol [Vitamin D2 (1250 1,250 mcg PO MO 11/24/22 11/24/22 Mcg = 26245 Iu)] Famotidine [Pepcid] 40 mg PO DAILY 11/24/22 11/24/22 Linaclotide [Linzess] 290 mcg PO DAILY 11/24/22 11/24/22 Melatonin 3 mg PO HS 11/24/22 11/24/22 Milk Thistle 150 mg PO DAILY 11/24/22 11/24/22 Montelukast [Singulair] 10 mg PO DAILY 11/24/22 11/24/22 [place]-3/Dha/Epa/Fish Oil [Fish Oil 1 cap PO DAILY 11/24/22 11/24/22 1,000 mg Softgel] Omeprazole [PriLOSEC] 40 mg PO BID 11/24/22 11/24/22 Sucralfate [Carafate] 1 gm PO ACHS 11/24/22 11/24/22 Vitamin B Complex 1 cap PO DAILY 11/24/22 11/24/22 Vitamin E (Dl,Tocopheryl Acet) 400 unit PO DAILY 11/24/22 11/24/22 [Vitamin E (400 Iu = 180 mg)] l-Norgest/E.estradiol-E.estrad 1 tab PO DAILY 11/24/22 11/24/22 [Seasonique 0.15-0.03-0.01 Tab] lisinopriL [Lisinopril] 10 mg PO HS 11/24/22 11/24/22 traZODone HCL 100 mg PO HS 11/24/22 11/24/22 Allergies Allergy/AdvReac Type Severity Reaction Status Date / Time No Known Allergies Allergy Verified 11/24/22 11:11 Review of Systems ROS Statement: Those systems with pertinent positive or pertinent negative responses have been documented in the HPI. ROS Other: All systems not noted in ROS Statement are negative. Past Medical History Past Medical History: GERD/Reflux, Thyroid Disorder Additional Past Medical History / Comment(s): Bulemia with purging-month ago, acne, endometriosis, hypothyroid History of Any Multi-Drug Resistant Organisms: None Reported Past Surgical History: Bladder Surgery Past Anesthesia/Blood Transfusion Reactions: No Reported Reaction Past Psychological History: Anxiety, Bipolar, Depression Smoking Status: Never smoker Past Alcohol Use History: Occasional Past Drug Use History: Marijuana - Past Family History Father Family Medical History: Diabetes Mellitus, Hypertension Additional Family Medical History / Comment(s): Father is alive at age 50 and has history of hypertension and diabetes. Mother Family Medical History: Hypertension Additional Family Medical History / Comment(s): Mother is age 52 and has history of hypertension and palpitations. Patient has 1 brother and 1 sister with no major medical problems. General Exam - General Exam Comments Initial Comments: GENERAL: Patient is well-developed and well-nourished. Patient is nontoxic and well- hydrated and is in mild distress. ENT: Neck is soft and supple. No significant lymphadenopathy is noted. Oropharynx is clear. Moist mucous membranes. Neck has full range of motion without eliciting any pain. EYES: The sclera were anicteric and conjunctiva were pink and moist. Extraocular movements were intact and pupils were equal round and reactive to light. Eyelids were unremarkable. PULMONARY: Unlabored respirations. Good breath sounds bilaterally. No audible rales r honchi or wheezing was noted. CARDIOVASCULAR: There is a regular rate and rhythm without any murmurs gallops or rubs. ABDOMEN: Soft and nontender with normal bowel sounds. SKIN: Skin is clear with no lesions or rashes and otherwise unremarkable. NEUROLOGIC: Patient is alert and oriented x3. Cranial nerves II through XII are grossly intact. Motor and sensory are also intact. Normal speech, volume and content. Symmetrical smile. MUSCULOSKELETAL: Normal extremities with adequate strength and full range of motion. LYMPHATICS: No significant lymphadenopathy is noted PSYCHIATRIC: Normal psychiatric evaluation. Limitations: no limitations Course Vital Signs 11/24/22 09:07 Temperature 99.4 F Pulse Rate 95 Respiratory 18 Rate Blood Pressure 144/100 O2 Sat by Pulse 100 Oximetry Medical Decision Making - Medical Decision Making EKG is interpreted by myself that shows a sinus rhythm at 83 bpm LA interval 233 QRS 106 QT interval 374 QTC is 414. Patient's EKG shows no ST segment elevation or depression Was pt. sent in by a medical professional or institution (LOUIE Wilkins, SNOWBLOWER MECHANIC, urgent care, hospital, or fpc...) When possible be specific @ -Patient was sent in by primary medical care doctor Did you speak to anyone other than the patient for history (EMS, parent, family, police, friend...)? What history was obtained from this source @ -No Did you review nursing and triage notes (agree or disagree)? Why? @ -I reviewed and agree with nursing and triage notes Were old charts reviewed (outside hosp., previous admission, EMS record, old EKG, old radiological studies, urgent care reports/EKG's, fpc records)? Report findings @ -I reviewed prior lab work prior charts on this patient Differential Diagnosis (chest pain, altered mental status, abdominal pain women, abdominal pain men, vaginal bleeding, weakness, fever, dyspnea, syncope, headache, dizziness, GI bleed, back pain, seizure, CVA, palpatations, mental health, musculoskeletal)? @ -Differential Dyspnea: Coronary syndrome, arrhythmia, tamponade, asthma, COPD, pulmonary embolism, pneumonia, pneumothorax, pulmonary effusion, anaphylaxis, diabetic ketoacidosis, flailed chest, pulmonary contusion, diaphragmatic rupture, anemia, neuromuscular, this is not meant to be an all-inclusive list. EKG interpreted by me (3pts min.). @ -As above X-rays interpreted by me (1pt min.). @ - chest x-ray shows no acute abnormality. CT interpreted by me (1pt min.). @ -None done U/S interpreted by me (1pt. min.). @ -None done What testing was considered but not performed or refused? (CT, X-rays, U/S, labs )? Why? @ -None What meds were considered but not given or refused? Why? @ -None Did you discuss the management of the patient with other professionals (professionals i.e. , PA, SNOWBLOWER MECHANIC, lab, RT, psych nurse, social security benefits interviewer, enrobing machine corder, teacher, chemistry technical officer, transplant case manager)? Give summary @ -No Was smoking cessation discussed for >3mins.? @ -No Was critical care preformed (if so, how long)? @ -No Were there social determinants of health that impacted care today? How? (Homelessness, low income, unemployed, alcoholism, drug addiction, transportation, low edu. Level, literacy, decrease access to med. care, longterm, rehab)? @ -No Was there de-escalation of care discussed even if they declined (Discuss DNR or withdrawal of care, Hospice)? DNR status @ -No What co-morbidities impacted this encounter? (DM, HTN, Smoking, COPD, CAD, Cancer, CVA, ARF, Chemo, Hep., AIDS, mental health diagnosis, sleep apnea, morbid obesity)? @ -None Was patient admitted / discharged? Hospital course, mention meds given and route, prescriptions, significant lab abnormalities, going to OR and other pertinent info. @ -Patient was actually 100% throughout her whole stay. Patient stated that her chest pain was only. Intermittent and lasting only a few minutes at a time. It was all right upper chest it was no anterior chest pain. Patient denied any recent fever chills. Patient states she took her last steroid dose on Monday. Patient just finished her antibiotics. Undiagnosed new problem with uncertain prognosis? @ -No Drug Therapy requiring intensive monitoring for toxicity (Heparin, Nitro, Insulin, Cardizem)? @ -No Were any procedures done? @ -No Diagnosis/symptom? @ -Chest tightness Acute, or Chronic, or Acute on Chronic? @ -Acute Uncomplicated (without systemic symptoms) or Complicated (systemic symptoms)? @ -Complicated Side effects of treatment? @ -No Exacerbation, Progression, or Severe Exacerbation? @ -No Poses a threat to life or bodily function? How? (Chest pain, [place], [place], pneumonia, PE, COPD, DKA, ARF, appy, cholecystitis, CVA, Diverticulitis, Homicidal, Suicidal, threat to staff... and all critical care pts) @ -No - Lab Data Result diagrams: 11/24/22 09:45 11/24/22 09:45 Lab Results 11/24/22 11/24/22 11/24/22 Range/Units 09:45 09:45 09:45 WBC 13.6 H (3.8-10.6) k/uL RBC 5.86 H (3.80-5.40) m/uL Hgb 15.6 (11.4-16.0) gm/dL Hct 50.0 H (34.0-46.0) % MCV 85.3 (80.0-100.0) fL MCH 26.7 (25.0-35.0) pg MCHC 31.3 (31.0-37.0) g/dL RDW 13.1 (11.5-15.5) % Plt Count 432 (150-450) k/uL MPV 6.7 Neutrophils % 66 % Lymphocytes % 25 % Monocytes % 5 % Eosinophils % 1 % Basophils % 0 % Neutrophils # 9.0 H (1.3-7.7) k/uL Lymphocytes # 3.4 (1.0-4.8) k/uL Monocytes # 0.7 (0-1.0) k/uL Eosinophils # 0.2 (0-0.7) k/uL Basophils # 0.1 (0-0.2) k/uL PT 10.3 (9.0-12.0) sec INR 1.0 (<1.2) APTT 27.2 (22.0-30.0) sec D-Dimer 0.25 (<0.60) mg/L FEU Sodium 138 (137-145) mmol/L Potassium 4.2 (3.5-5.1) mmol/L Chloride 101 (98-107) mmol/L Carbon Dioxide 26 (22-30) mmol/L Anion Gap 11 mmol/L BUN 17 (7-17) mg/dL Creatinine 0.86 (0.52-1.04) mg/dL Est GFR (CKD-EPI)AfAm >90 (>60 ml/min/1.73 sqM) Est GFR (CKD-EPI)NonAf >90 (>60 ml/min/1.73 sqM) Glucose 96 (74-99) mg/dL Plasma Lactic Acid Tyson (0.7-2.0) mmol/L Calcium 9.8 (8.4-10.2) mg/dL Magnesium 1.9 (1.6-2.3) mg/dL Total Bilirubin 0.8 (0.2-1.3) mg/dL AST 34 (14-36) U/L ALT 58 H (4-34) U/L Alkaline Phosphatase 65 (38-126) U/L Troponin I (0.000-0.034) ng/mL Total Protein 8.5 H (6.3-8.2) g/dL Albumin 5.0 (3.5-5.0) g/dL Influenza Type A (PCR) (Not Detectd) Influenza Type B (PCR) (Not Detectd) RSV (PCR) (Not Detectd) SARS-CoV-2 (PCR) (Not Detectd) 11/24/22 11/24/22 11/24/22 Range/Units 09:45 10:00 10:00 WBC (3.8-10.6) k/uL RBC (3.80-5.40) m/uL Hgb (11.4-16.0) gm/dL Hct (34.0-46.0) % MCV (80.0-100.0) fL MCH (25.0-35.0) pg MCHC (31.0-37.0) g/dL RDW (11.5-15.5) % Plt Count (150-450) k/uL MPV Neutrophils % % Lymphocytes % % Monocytes % % Eosinophils % % Basophils % % Neutrophils # (1.3-7.7) k/uL Lymphocytes # (1.0-4.8) k/uL Monocytes # (0-1.0) k/uL Eosinophils # (0-0.7) k/uL Basophils # (0-0.2) k/uL PT (9.0-12.0) sec INR (<1.2) APTT (22.0-30.0) sec D-Dimer (<0.60) mg/L FEU Sodium (137-145) mmol/L Potassium (3.5-5.1) mmol/L Chloride (98-107) mmol/L Carbon Dioxide (22-30) mmol/L Anion Gap mmol/L BUN (7-17) mg/dL Creatinine (0.52-1.04) mg/dL Est GFR (CKD-EPI)AfAm (>60 ml/min/1.73 sqM) Est GFR (CKD-EPI)NonAf (>60 ml/min/1.73 sqM) Glucose (74-99) mg/dL Plasma Lactic Acid Tyson 2.1 H* (0.7-2.0) mmol/L Calcium (8.4-10.2) mg/dL Magnesium (1.6-2.3) mg/dL Total Bilirubin (0.2-1.3) mg/dL AST (14-36) U/L ALT (4-34) U/L Alkaline Phosphatase (38-126) U/L Troponin I <0.012 (0.000-0.034) ng/mL Total Protein (6.3-8.2) g/dL Albumin (3.5-5.0) g/dL Influenza Type A (PCR) Not Detected (Not Detectd) Influenza Type B (PCR) Not Detected (Not Detectd) RSV (PCR) Not Detected (Not Detectd) SARS-CoV-2 (PCR) Not Detected (Not Detectd) Disposition Clinical Impression: Chest tightness Disposition: HOME SELF-CARE Instructions (If sedation given, give patient instructions): Chest Pain (ED) Is patient prescribed a controlled substance at d/c from ED?: No Referrals: Sadiq Livingston MD [Primary Care Provider] - 1-2 days Time of Disposition: 11:25
--- NOTE | 2022-11-24 10:08 | XR ---
EXAMINATION TYPE: XR chest 2V DATE OF EXAM: 11/24/2022 10:03 AM COMPARISON: Chest radiographs from 03/22/2019 TECHNIQUE: XR chest 2V Frontal and lateral views of the chest. CLINICAL INDICATION:Female, 32 years old with history of difficulty breathing; FINDINGS: Lungs/Pleura: There is no evidence of pleural effusion, focal consolidation, or pneumothorax. Pulmonary vascularity: Unremarkable. Heart/mediastinum: Cardiomediastinal silhouette is unremarkable. Musculoskeletal: No acute osseous pathology. IMPRESSION: No acute cardiopulmonary disease/process.
[2022-11-24 10:28] LABS: Partial Thromboplastin Time 27.2 sec (22.0-30.0); Prothrombin Time 10.3 sec (9.0-12.0)
[2022-11-24 10:29] LABS: ALT 58 U/L (4-34); AST 34 U/L (14-36); African American GFR (CKD) >90 (>60 ml/min/1.73 sqM); Alkaline Phosphatase 65 U/L (38-126); Anion Gap 11 mmol/L; Blood Urea Nitrogen 17 mg/dL (7-17); Calcium 9.8 mg/dL (8.4-10.2); Carbon Dioxide 26 mmol/L (22-30); Chloride 101 mmol/L (98-107); Glucose 96 mg/dL (74-99); Magnesium 1.9 mg/dL (1.6-2.3); Non-African American GFR(CKD) >90 (>60 ml/min/1.73 sqM); Potassium 4.2 mmol/L (3.5-5.1); Sodium 138 mmol/L (137-145); Total Bilirubin 0.8 mg/dL (0.2-1.3); Total Protein 8.5 g/dL (6.3-8.2)
[2022-11-24 10:32] LABS: Basophils # (A) 0.1 k/uL (0-0.2); Basophils % (A) 0 %; Eosinophils # (A) 0.2 k/uL (0-0.7); Eosinophils % (A) 1 %; HGB 15.6 gm/dL (11.4-16.0); Lymphocytes # (A) 3.4 k/uL (1.0-4.8); Lymphocytes % (A) 25 %; MCH 26.7 pg (25.0-35.0); MCHC 31.3 g/dL (31.0-37.0); MCV 85.3 fL (80.0-100.0); Mean Platelet Volume 6.7; Monocytes # (A) 0.7 k/uL (0-1.0); Monocytes % (A) 5 %; Neutrophils % (A) 66 %; Platelet Count 432 k/uL (150-450); RBC 5.86 m/uL (3.80-5.40); RDW 13.1 % (11.5-15.5); WBC 13.6 k/uL (3.8-10.6)
[2022-11-24 12:05] VITALS: BP 121/85; PULSE 91; TEMP 97.8
== END 2022-11-24 12:05 | disposition home or self-care (01) ==
LOC: EC 09:05
DX: R07.89 Other chest pain (principal); K21.9 Gastro-esophageal reflux disease without esophagitis; E03.9 Hypothyroidism, unspecified; F41.9 Anxiety disorder, unspecified; F31.9 Bipolar disorder, unspecified; Z79.890 Hormone replacement therapy; Z79.899 Other long term (current) drug therapy; Z20.822 Contact with and (suspected) exposure to COVID-19
CPT/HCPCS: 36415; 71046; 80053; 83605; 83735; 84484; 85025; 85379; 85610; 85730; 87040; 87636; 93005; 99285

== ENCOUNTER 2023-06-20 23:24 | Emergency (ER) | payer BC, OTHER ==
[2023-06-20 23:41] VITALS: TEMP 98.1
[2023-06-20 23:53] LABS: Glucose,Whole Blood 84 mg/dL (70-110)
--- NOTE | 2023-06-21 00:03 | ED ---
General Adult HPI - General Chief complaint: Recheck/Abnormal Lab/Rx Stated complaint: High BP blurry vision Source: patient Mode of arrival: wheelchair Limitations: no limitations - History of Present Illness Initial comments: Hector is a 33-year-old female with history of hypertension who is been off of her oral antihypertensive medications for about 6 months. Patient reports she lost her insurance and she was off medications for couple of months she followed with her primary care in January her blood pressure was an acceptable range at that time so she was not restarted on her antihypertensives. Patient reports that for the past couple of weeks she has experienced headaches and blurred vision which seemed to be worse while she is at work focusing on the cardiac monitors. She reports she took some Motrin today around 6:30 but had persistent headache, which her doctor vital signs noted a systolic blood pressure over 200 and advised to come to ER for evaluation. Patient does wear corrective lenses and doesn't believe she's had them updated in 1-2 years but doesn't feel that a strain as the cause of her headaches. - Related Data Home Medications Medication Instructions Recorded Confirmed Levothyroxine Sodium [Synthroid] 50 mcg PO DAILY 01/09/19 11/24/22 Multivitamins, Thera [Multivitamin 1 tab PO DAILY 07/19/21 11/24/22 (formulary)] metFORMIN HCL 500 mg PO BID 07/19/21 11/24/22 Biotin [Biotin Disolve] 5,000 mcg PO DAILY 11/24/22 11/24/22 Cariprazine HCl [Vraylar] 3 mg PO HS 11/24/22 11/24/22 Cholecalciferol [Vitamin D3 (25 25 mcg PO DAILY 11/24/22 11/24/22 Mcg = 1000 Iu)] Ergocalciferol [Vitamin D2 (1250 1,250 mcg PO MO 11/24/22 11/24/22 Mcg = 17705 Iu)] Famotidine [Pepcid] 40 mg PO DAILY 11/24/22 11/24/22 Linaclotide [Linzess] 290 mcg PO DAILY 11/24/22 11/24/22 Melatonin 3 mg PO HS 11/24/22 11/24/22 Milk Thistle 150 mg PO DAILY 11/24/22 11/24/22 Montelukast [Singulair] 10 mg PO DAILY 11/24/22 11/24/22 [place]-3/Dha/Epa/Fish Oil [Fish Oil 1 cap PO DAILY 11/24/22 11/24/22 1,000 mg Softgel] Omeprazole [PriLOSEC] 40 mg PO BID 11/24/22 11/24/22 Sucralfate [Carafate] 1 gm PO ACHS 11/24/22 11/24/22 Vitamin B Complex 1 cap PO DAILY 11/24/22 11/24/22 Vitamin E (Dl,Tocopheryl Acet) 400 unit PO DAILY 11/24/22 11/24/22 [Vitamin E (400 Iu = 180 mg)] l-Norgest/E.estradiol-E.estrad 1 tab PO DAILY 11/24/22 11/24/22 [Seasonique 0.15-0.03-0.01 Tab] lisinopriL [Lisinopril] 10 mg PO HS 11/24/22 11/24/22 traZODone HCL 100 mg PO HS 11/24/22 11/24/22 Previous Rx's Medication Instructions Recorded lisinopriL [Zestril] 10 mg PO DAILY #30 tab 06/21/23 Allergies Allergy/AdvReac Type Severity Reaction Status Date / Time No Known Allergies Allergy Verified 06/20/23 23:26 Review of Systems ROS Statement: Those systems with pertinent positive or pertinent negative responses have been documented in the HPI. ROS Other: All systems not noted in ROS Statement are negative. Past Medical History Past Medical History: GERD/Reflux, Thyroid Disorder Additional Past Medical History / Comment(s): Bulemia with purging-month ago, acne, endometriosis, hypothyroid History of Any Multi-Drug Resistant Organisms: None Reported Past Surgical History: Bladder Surgery Past Anesthesia/Blood Transfusion Reactions: No Reported Reaction Past Psychological History: Anxiety, Bipolar, Depression Smoking Status: Never smoker Past Alcohol Use History: Occasional Past Drug Use History: Marijuana - Past Family History Father Family Medical History: Diabetes Mellitus, Hypertension Additional Family Medical History / Comment(s): Father is alive at age 50 and has history of hypertension and diabetes. Mother Family Medical History: Hypertension Additional Family Medical History / Comment(s): Mother is age 52 and has history of hypertension and palpitations. Patient has 1 brother and 1 sister with no major medical problems. General Exam Limitations: no limitations Course Vital Signs 06/20/23 06/21/23 23:27 00:29 Temperature 98.1 F Pulse Rate 88 86 Respiratory 17 19 Rate Blood Pressure 194/124 163/103 O2 Sat by Pulse 100 99 Oximetry EKG Findings - EKG Comments: EKG Findings:: EKG interpreted by me, EKG obtained due to hypertension and headache, EKG obtained at 2343 rate is 83 rhythm is a narrow complex regular rhythm with P waves before each QRS this is sinus. No ST elevations or depressions or evidence of ischemia, infarction or pathologic arrhythmia. Medical Decision Making - Medical Decision Making Was pt. sent in by a medical professional or institution (, PA, HYDROELECTRIC OPERATOR, urgent care, hospital, or alf...) When possible be specific @ -No Did you speak to anyone other than the patient for history (EMS, parent, family, police, friend...)? What history was obtained from this source @ -No Did you review nursing and triage notes (agree or disagree)? Why? @ -I reviewed and agree with nursing and triage notes Were old charts reviewed (outside hosp., previous admission, EMS record, old EKG, old radiological studies, urgent care reports/EKG's, alf records)? Report findings @ -No old charts were reviewed Differential Diagnosis (chest pain, altered mental status, abdominal pain women, abdominal pain men, vaginal bleeding, weakness, fever, dyspnea, syncope, headache, dizziness, GI bleed, back pain, seizure, CVA, palpatations, mental he alth)? @ Differential Headache: Migraine, tension, cluster, carbon monoxide, central venous thrombosis, pension karma temporal arteritis, acute closure glaucoma, intercranial hemorrhage, mastoiditis, sinusitis, head injury, this is not meant to be an all-inclusive list. EKG interpreted by me (3pts min.). @ -As above X-rays interpreted by me (1pt min.). @ -None done CT interpreted by me (1pt min.). @ -No evidence of mass or bleed U/S interpreted by me (1pt. min.). @ -None done What testing was considered but not performed or refused? (CT, X-rays, U/S, labs)? Why? @ -None What meds were considered but not given or refused? Why? @ -None Did you discuss the management of the patient with other professionals (professionals i.e. , PA, HYDROELECTRIC OPERATOR, lab, RT, psych nurse, social services specialist, business lawyer, teacher, cra officer, employment case manager)? Give summary @ -No Was smoking cessation discussed for >3mins.? @ -No Was critical care preformed (if so, how long)? @ -No Were there social determinants of health that impacted care today? How? (Homelessness, low income, unemployed, alcoholism, drug addiction, transportation, low edu. Level, literacy, decrease access to med. care, [facility], rehab)? @ -No Was there de-escalation of care discussed even if they declined (Discuss DNR or withdrawal of care, Hospice)? DNR status @ -No What co-morbidities impacted this encounter? (DM, HTN, Smoking, COPD, CAD, Cancer, CVA, ARF, Chemo, Hep., AIDS, mental health diagnosis, sleep apnea, morbid obesity)? @ Obesity, hypertension Was patient admitted / discharged? Hospital course, mention meds given and route, prescriptions, significant lab abnormalities, going to OR and other pertinent info. @ -Discharged Patient was seen and evaluated, history is obtained from the patient and review of medical record. Patient with hypertension while working, upon coming to the ER and resting in bed for a short period of time her blood pressure is improving. Her headache is improving. She has no focal neurologic deficits. Labs were obtained and were unremarkable head CT was reviewed and was unremarkable. EKG was nonischemic. Patient was given her home dose of lisinopril and advised to resume using her lisinopril. Prescription was provided and patient was discharged home in stable condition. Undiagnosed new problem with uncertain prognosis? @ -No Drug Therapy requiring intensive monitoring for toxicity (Heparin, Nitro, Insulin, Cardizem)? @ -No Were any procedures done? @ -No Diagnosis/symptom? @ Hypertension Acute, or Chronic, or Acute on Chronic? @ -default Uncomplicated (without systemic symptoms) or Complicated (systemic symptoms)? @ -default Side effects of treatment? @ -No Exacerbation, Progression, or Severe Exacerbation? @ -No Poses a threat to life or bodily function? How? (Chest pain, [place], [place], pneumonia, PE, COPD, DKA, ARF, appy, cholecystitis, CVA, Diverticulitis, Homicidal, Suicidal, threat to staff... and all critical care pts) @ -No - Lab Data Result diagrams: 06/21/23 00:00 06/20/23 23:58 Lab Results 06/20/23 06/20/23 06/21/23 Range/Units 23:52 23:58 00:00 WBC 9.6 (3.8-10.6) k/uL RBC 5.39 (3.80-5.40) m/uL Hgb 14.4 (11.4-16.0) gm/dL Hct 45.0 (34.0-46.0) % MCV 83.5 (80.0-100.0) fL MCH 26.7 (25.0-35.0) pg MCHC 32.0 (31.0-37.0) g/dL RDW 12.7 (11.5-15.5) % Plt Count 345 (150-450) k/uL MPV 6.6 Neutrophils % 56 % Lymphocytes % 34 % Monocytes % 5 % Eosinophils % 2 % Basophils % 1 % Neutrophils # 5.3 (1.3-7.7) k/uL Lymphocytes # 3.2 (1.0-4.8) k/uL Monocytes # 0.5 (0-1.0) k/uL Eosinophils # 0.2 (0-0.7) k/uL Basophils # 0.1 (0-0.2) k/uL Sodium 139 (137-145) mmol/L Potassium 3.8 (3.5-5.1) mmol/L Chloride 105 (98-107) mmol/L Carbon Dioxide 25 (22-30) mmol/L Anion Gap 9 mmol/L BUN 15 (7-17) mg/dL Creatinine 0.74 (0.52-1.04) mg/dL Est GFR (CKD-EPI)AfAm >90 (>60 ml/min/1.73 sqM) Est GFR (CKD-EPI)NonAf >90 (>60 ml/min/1.73 sqM) Glucose 109 H (74-99) mg/dL POC Glucose (mg/dL) 84 (70-110) mg/dL POC Glu Tube Teller ID Toshia Pastor Calcium 9.7 (8.4-10.2) mg/dL Total Bilirubin 0.6 (0.2-1.3) mg/dL AST 21 (14-36) U/L ALT 27 (4-34) U/L Alkaline Phosphatase 101 (38-126) U/L Troponin I (0.000-0.034) ng/mL Total Protein 8.3 H (6.3-8.2) g/dL Albumin 4.9 (3.5-5.0) g/dL 06/21/23 Range/Units 00:00 WBC (3.8-10.6) k/uL RBC (3.80-5.40) m/uL Hgb (11.4-16.0) gm/dL Hct (34.0-46.0) % MCV (80.0-100.0) fL MCH (25.0-35.0) pg MCHC (31.0-37.0) g/dL RDW (11.5-15.5) % Plt Count (150-450) k/uL MPV Neutrophils % % Lymphocytes % % Monocytes % % Eosinophils % % Basophils % % Neutrophils # (1.3-7.7) k/uL Lymphocytes # (1.0-4.8) k/uL Monocytes # (0-1.0) k/uL Eosinophils # (0-0.7) k/uL Basophils # (0-0.2) k/uL Sodium (137-145) mmol/L Potassium (3.5-5.1) mmol/L Chloride (98-107) mmol/L Carbon Dioxide (22-30) mmol/L Anion Gap mmol/L BUN (7-17) mg/dL Creatinine (0.52-1.04) mg/dL Est GFR (CKD-EPI)AfAm (>60 ml/min/1.73 sqM) Est GFR (CKD-EPI)NonAf (>60 ml/min/1.73 sqM) Glucose (74-99) mg/dL POC Glucose (mg/dL) (70-110) mg/dL POC Glu Tube Teller ID Calcium (8.4-10.2) mg/dL Total Bilirubin (0.2-1.3) mg/dL AST (14-36) U/L ALT (4-34) U/L Alkaline Phosphatase (38-126) U/L Troponin I <0.012 (0.000-0.034) ng/mL Total Protein (6.3-8.2) g/dL Albumin (3.5-5.0) g/dL Disposition Clinical Impression: Hypertension Disposition: HOME SELF-CARE Condition: Stable Additional Instructions: Resume Lisinopril 10mg daily, follow up with primary care physician for re-evaluation Follow up with optometry to ensure you have current prescription in your glasses Prescriptions: lisinopriL [Zestril] 10 mg PO DAILY #30 tab Is patient prescribed a controlled substance at d/c from ED?: No Referrals: Sadiq Livingston MD [Primary Care Provider] - 1-2 days
[2023-06-21 00:14] LABS: Basophils # (A) 0.1 k/uL (0-0.2); Basophils % (A) 1 %; Eosinophils # (A) 0.2 k/uL (0-0.7); Eosinophils % (A) 2 %; HGB 14.4 gm/dL (11.4-16.0); Lymphocytes # (A) 3.2 k/uL (1.0-4.8); Lymphocytes % (A) 34 %; MCH 26.7 pg (25.0-35.0); MCV 83.5 fL (80.0-100.0); Mean Platelet Volume 6.6; Monocytes # (A) 0.5 k/uL (0-1.0); Monocytes % (A) 5 %; Neutrophils # (A) 5.3 k/uL (1.3-7.7); Neutrophils % (A) 56 %; Platelet Count 345 k/uL (150-450); RBC 5.39 m/uL (3.80-5.40); RDW 12.7 % (11.5-15.5); WBC 9.6 k/uL (3.8-10.6)
[2023-06-21 00:23] LABS: ALT 27 U/L (4-34); AST 21 U/L (14-36); African American GFR (CKD) >90 (>60 ml/min/1.73 sqM); Albumin 4.9 g/dL (3.5-5.0); Alkaline Phosphatase 101 U/L (38-126); Anion Gap 9 mmol/L; Blood Urea Nitrogen 15 mg/dL (7-17); Calcium 9.7 mg/dL (8.4-10.2); Carbon Dioxide 25 mmol/L (22-30); Chloride 105 mmol/L (98-107); Glucose 109 mg/dL (74-99); Non-African American GFR(CKD) >90 (>60 ml/min/1.73 sqM); Potassium 3.8 mmol/L (3.5-5.1); Sodium 139 mmol/L (137-145); Total Bilirubin 0.6 mg/dL (0.2-1.3); Total Protein 8.3 g/dL (6.3-8.2)
--- NOTE | 2023-06-21 00:46 | CT ---
EXAMINATION TYPE: CT brain wo con DATE OF EXAM: 06/21/2023 COMPARISON: None. HISTORY: Pt presents with hypertension blurry vision while a work. Pt complains of right arm pain. CT DLP: 1153.7 mGycm. Automated Exposure Control for Dose Reduction was Utilized. TECHNIQUE: CT scan of the head is performed without contrast. FINDINGS: There is no acute intracranial hemorrhage, mass effect, or midline shift identified. The ventricles and sulci are within normal limits in size. Trejo-white matter differentiation is maintain ed. The calvarium is intact. The globes are intact and the visualized sinuses are clear. IMPRESSION: No acute intracranial hemorrhage or midline shift is seen.
[2023-06-21] MEDS ORDERED: lisinopriL 10 MG TAB PO STA (01:13)
[2023-06-21 01:45] VITALS: BP 149/99; PULSE 96; RESP 17
== END 2023-06-21 01:36 | disposition home or self-care (01) ==
LOC: EC 23:24
DX: I10 Essential (primary) hypertension (principal); K21.9 Gastro-esophageal reflux disease without esophagitis; E03.9 Hypothyroidism, unspecified; F31.9 Bipolar disorder, unspecified; F41.9 Anxiety disorder, unspecified; F12.90 Cannabis use, unspecified, uncomplicated; Z79.890 Hormone replacement therapy; Z79.899 Other long term (current) drug therapy
CPT/HCPCS: 36415; 70450; 80053; 84484; 85025; 99284

== ENCOUNTER → 2023-06-29 | Outpatient (CLI) | payer BC ==
--- NOTE | 2023-07-01 13:00 | MR ---
EXAMINATION TYPE: MR brain wo con DATE OF EXAM: 06/29/2023 4:29 PM CLINICAL INDICATION:Female, 33 years old with history of H53.8 VISUAL DISTURBANCE; PHH, Prior CT on P ACS, hypertension, burry vision and HAs COMPARISON: 06/21/2023. TECHNIQUE: Multi planar, multi sequence imaging was performed through the brain including: T1, T2, In version recovery, Diffusion weighted imaging, and gradient echo imaging. No gadolinium was given. FINDINGS: The wilson-white junctions, ventricular system, basal cisterns appear unremarkable. Minimal scattered foci of high T2 signal intensity are seen within the periventricular white matter. Example includes series 601 image 16 bilaterally in the frontal lobes and series 601 image 19 and the posterior right frontal lobe Midline structures show no abnormality. Diffusion-weighted imaging shows no evidence of restricted diffusion. The susceptibility weighted images do not reveal any evidence for micro-hemorrh age. The bone marrow signal is within normal limits. Paranasal sinuses and mastoid air cells: Mild paranasal sinus disease most pronounced in the left max illary sinus. Visualized orbits: Orbital contents are intact. IMPRESSION: 1. Few scattered small foci of nonspecific white matter changes, findings may be sequela of migraines , correlate for signs and symptoms of demyelination. No evidence of active demyelination. Consider sh ort-term follow-up with MRI brain MS protocol to ensure stability. 2. No evidence of intracranial mass or acute/subacute infarct.
== END | disposition home or self-care (01) ==
LOC: RADMRIMAIN 15:56
PROVIDERS: ATTEND Family Medicine
DX: G93.89 Other specified disorders of brain (principal); H53.8 Other visual disturbances; I10 Essential (primary) hypertension
CPT/HCPCS: 70551

== ENCOUNTER 2023-07-20 23:36 | Emergency (ER) | payer BC ==
--- NOTE | 2023-07-21 00:17 | ED ---
General Adult HPI <Dylan Munoz - Last Filed: 07/21/23 00:19> <Vamshi Marin - Last Filed: 07/21/23 04:05> - General Stated complaint: chest pain rt arm pain high BP Time Seen by Provider: 07/21/23 00:16 - History of Present Illness Initial comments: Quicknote 33 year old female presenting to the ED with a chief complaint of HTN. States her blood pressure has been "up and down". States earlier her blood pressure was high in the 170s systolic prompting presentation to the ED for further evaluation. Also notes some chest pain. (Dylan Munoz) Dictation was produced using [employer] dictation software. please excuse any grammatical, word or spelling errors. Chief Complaint: Chest pain History of Present Illness: Patient is a 33-year-old female presents to the emergency department chest pain. States that it was a vague ache that was in her substernal chest and moved to her right arm pain. Patient has high blood pressure. States that her primary care doctor has been working to treat her blood pressure it has been waxing and waning The ROS documented in this emergency department record has been reviewed and confirmed by me. Those systems with pertinent positive or negative responses have been documented in the HPI. All other systems are other negative and/or noncontributory. (Vamshi Marin) - Related Data Home Medications Medication Instructions Recorded Confirmed Levothyroxine Sodium [Synthroid] 50 mcg PO DAILY 01/09/19 11/24/22 Multivitamins, Thera [Multivitamin 1 tab PO DAILY 07/19/21 11/24/22 (formulary)] metFORMIN HCL 500 mg PO BID 07/19/21 11/24/22 Biotin [Biotin Disolve] 5,000 mcg PO DAILY 11/24/22 11/24/22 Cariprazine HCl [Vraylar] 3 mg PO HS 11/24/22 11/24/22 Cholecalciferol [Vitamin D3 (25 25 mcg PO DAILY 11/24/22 11/24/22 Mcg = 1000 Iu)] Ergocalciferol [Vitamin D2 (1250 1,250 mcg PO MO 11/24/22 11/24/22 Mcg = 40437 Iu)] Famotidine [Pepcid] 40 mg PO DAILY 11/24/22 11/24/22 Linaclotide [Linzess] 290 mcg PO DAILY 11/24/22 11/24/22 Melatonin 3 mg PO HS 11/24/22 11/24/22 Milk Thistle 150 mg PO DAILY 11/24/22 11/24/22 Montelukast [Singulair] 10 mg PO DAILY 11/24/22 11/24/22 [place]-3/Dha/Epa/Fish Oil [Fish Oil 1 cap PO DAILY 11/24/22 11/24/22 1,000 mg Softgel] Omeprazole [PriLOSEC] 40 mg PO BID 11/24/22 11/24/22 Sucralfate [Carafate] 1 gm PO ACHS 11/24/22 11/24/22 Vitamin B Complex 1 cap PO DAILY 11/24/22 11/24/22 Vitamin E (Dl,Tocopheryl Acet) 400 unit PO DAILY 11/24/22 11/24/22 [Vitamin E (400 Iu = 180 mg)] l-Norgest/E.estradiol-E.estrad 1 tab PO DAILY 11/24/22 11/24/22 [Seasonique 0.15-0.03-0.01 Tab] lisinopriL [Lisinopril] 10 mg PO HS 11/24/22 11/24/22 traZODone HCL 100 mg PO HS 11/24/22 11/24/22 Previous Rx's Medication Instructions Recorded lisinopriL [Zestril] 10 mg PO DAILY #30 tab 06/21/23 Allergies Allergy/AdvReac Type Severity Reaction Status Date / Time No Known Allergies Allergy Verified 07/21/23 00:16 Review of Systems ROS Other: All systems not noted in ROS Statement are negative. <Dylan Munoz - Last Filed: 07/21/23 00:19> ROS Other: All systems not noted in ROS Statement are negative. <Vamshi Marin - Last Filed: 07/21/23 04:05> ROS Statement: Those systems with pertinent positive or pertinent negative responses have been documented in the HPI. Past Medical History Past Medical History: GERD/Reflux, Thyroid Disorder Additional Past Medical History / Comment(s): Bulemia with purging-month ago, acne, endometriosis, hypothyroid History of Any Multi-Drug Resistant Organisms: None Reported Past Surgical History: Bladder Surgery Past Anesthesia/Blood Transfusion Reactions: No Reported Reaction Past Psychological History: Anxiety, Bipolar, Depression Smoking Status: Never smoker Past Alcohol Use History: Occasional Past Drug Use History: Marijuana - Past Family History Father Family Medical History: Diabetes Mellitus, Hypertension Additional Family Medical History / Comment(s): Father is alive at age 50 and has history of hypertension and diabetes. Mother Family Medical History: Hypertension Additional Family Medical History / Comment(s): Mother is age 52 and has history of hypertension and palpitations. Patient has 1 brother and 1 sister with no major medical problems. <Dylan Munoz - Last Filed: 07/21/23 00:19> General Exam <Dylan Munoz - Last Filed: 07/21/23 00:19> <Vamshi Marin - Last Filed: 07/21/23 04:05> - General Exam Comments Initial Comments: Visual Physical Exam Vital signs reviewed General: Well-appearing, nontoxic, no acute distress. Head: Normocephalic, atraumatic Eyes: PERRLA, EOMI ENT: Airway patent Chest: Nonlabored breathing Skin: No visual rash, normal skin tone Neuro: Alert and oriented 3 Musculoskeletal: No gross abnormalities (Dylan Munoz) PHYSICAL EXAM: General Impression: Alert and oriented x3, not in acute distress HEENT: Normocephalic atraumatic, extra-ocular movements intact, pupils equal and reactive to light bilaterally, mucous membranes moist. Cardiovascular: Heart regular rate and rhythm Chest: Able to complete full sentences, no retractions, no tachypnea Abdomen: abdomen soft, non-tender, non-distended, no organomegaly Musculoskeletal: Pulses present and equal in all extremities, no peripheral edema Motor: no focal deficits noted Neurological: CN II-XII grossly intact, no focal motor or sensory deficits noted Skin: Intact with no visualized rashes Psych: Normal affect and mood (Vamshi Marin) Course Vital Signs 07/21/23 07/21/23 07/21/23 00:16 01:48 03:10 Temperature 98.3 F 99.0 F Pulse Rate 105 H 91 104 H Respiratory 17 17 18 Rate Blood Pressure 172/131 153/100 167/129 O2 Sat by Pulse 100 100 100 Oximetry 07/21/23 03:28 Temperature Pulse Rate 98 Respiratory 16 Rate Blood Pressure 151/103 O2 Sat by Pulse 100 Oximetry EKG Findings - EKG Comments: EKG Findings:: My EKG interpretation: Ventricular rate 80, sinus rhythm,. 139, QRS 100, QTc 4 3. No W[place] prolongation, no QTC prolongation, no ST or T-wave c hanges noted. Overall, this EKG is unremarkable <Vamshi Marin - Last Filed: 07/21/23 04:05> Medical Decision Making <Dylan Munoz - Last Filed: 07/21/23 00:19> - Lab Data Result diagrams: 07/21/23 00:36 07/21/23 00:36 <Vamshi Marin - Last Filed: 07/21/23 04:05> - Medical Decision Making Quicknote portion performed. Signed Dylan Munoz PA-C (Dylan Munoz) Was pt. sent in by a medical professional or institution (LOUIE Wilkins, RADIOLOGY SCHEDULER, urgent care, hospital, or long-term...) When possible be specific @ -No Did you speak to anyone other than the patient for history (EMS, parent, family, police, friend...)? What history was obtained from this source @ -No Did you review nursing and triage notes (agree or disagree)? Why? @ -I reviewed and agree with nursing and triage notes Were old charts reviewed (outside hosp., previous admission, EMS record, old EKG, old radiological studies, urgent care reports/EKG's, long-term records)? Report findings @ -No old charts were reviewed Differential Diagnosis (chest pain, altered mental status, abdominal pain women, abdominal pain men, vaginal bleeding, musculoskeletal, weakness, fever, dyspnea, syncope, headache, dizziness, GI bleed, back pain, seizure, CVA, palpatations, mental health)? @ -Differential Chest Pain: Stable Angina, Unstable Angina, STEMI, NSTEMI Aortic Dissection, Pneumothorax, Musculoskeletal, Esophageal Spasm GERD, Cholecystitis, Pancreatitis, Zoster, this is not meant to be an all-inclusive list. EKG interpreted by me (3pts min.). @ -None done X-rays interpreted by me (1pt min.). @ -Chest x-ray is unremarkable CT interpreted by me (1pt min.). @ -None done U/S interpreted by me (1pt. min.). @ -None done What testing was considered but not performed or refused? (CT, X-rays, U/S, labs)? Why? @ -None What meds were considered but not given or refused? Why? @ -None Did you discuss the management of the patient with other professionals (professionals i.e. Dr., PA, RADIOLOGY SCHEDULER, lab, RT, psych nurse, social media developer, liberal arts and humanities chair, teacher, sea air land officer, director case management)? Give summary @ -No Was smoking cessation discussed for >3mins.? @ -No Was critical care preformed (if so, how long)? @ -No Were there social determinants of health that impacted care today? How? (Homelessness, low income, unemployed, alcoholism, drug addiction, transportation, low edu. Level, literacy, decrease access to med. care, assisted, rehab)? @ -No Was there de-escalation of care discussed even if they declined (Discuss DNR or withdrawal of care, Hospice)? DNR status @ -No What co-morbidities impacted this encounter? (DM, HTN, Smoking, COPD, CAD, Cancer, CVA, ARF, Chemo, Hep., AIDS, mental health diagnosis, sleep apnea, morbid obesity)? @ -None Was patient admitted / discharged? Hospital course, mention meds given and route, prescriptions, significant lab abnormalities, going to OR and other pertinent info. @ -33-year-old female presents to the emergency department for atypical chest pain typical features. Vital signs stable. Laboratory is unremarkable. Patient is low heart score. EKG is negative. Patient evaluated bedside at 4:05 AM with no symptoms. Patient will be discharged advised follow-up with primary care doctor. Undiagnosed new problem with uncertain prognosis? @ -No Drug Therapy requiring intensive monitoring for toxicity (Heparin, Nitro, Insulin, Cardizem)? @ -No Were any procedures done? @ -No Diagnosis/symptom? Acute, or Chronic, or Acute on Chronic? Uncomplicated (without systemic symptoms) or Complicated (systemic symptoms)? @ -Chest pain Side effects of treatment? @ -No Exacerbation, Progression, or Severe Exacerbation? @ -No Poses a threat to life or bodily function? How? (Chest pain, [place], [place], pneumonia, PE, COPD, DKA, ARF, appy, cholecystitis, CVA, Diverticulitis, Homicidal, Suicidal, threat to staff... and all critical care pts) @ -No (Vamshi Marin) - Lab Data Lab Results 07/21/23 07/21/23 07/21/23 Range/Units 00:36 00:36 00:36 WBC 10.7 H (3.8-10.6) k/uL RBC 5.64 H (3.80-5.40) m/uL Hgb 15.3 (11.4-16.0) gm/dL Hct 47.1 H (34.0-46.0) % MCV 83.6 (80.0-100.0) fL MCH 27.1 (25.0-35.0) pg MCHC 32.5 (31.0-37.0) g/dL RDW 12.9 (11.5-15.5) % Plt Count 376 (150-450) k/uL MPV 6.7 Neutrophils % 54 % Lymphocytes % 36 % Monocytes % 5 % Eosinophils % 2 % Basophils % 1 % Neutrophils # 5.8 (1.3-7.7) k/uL Lymphocytes # 3.8 (1.0-4.8) k/uL Monocytes # 0.5 (0-1.0) k/uL Eosinophils # 0.2 (0-0.7) k/uL Basophils # 0.1 (0-0.2) k/uL PT 9.9 L (10.0-12.5) sec INR 0.9 (<1.2) APTT 28.0 (22.0-30.0) sec Sodium (137-145) mmol/L Potassium (3.5-5.1) mmol/L Chloride (98-107) mmol/L Carbon Dioxide (22-30) mmol/L Anion Gap mmol/L BUN (7-17) mg/dL Creatinine (0.52-1.04) mg/dL Est GFR (CKD-EPI)AfAm (>60 ml/min/1.73 sqM) Est GFR (CKD-EPI)NonAf (>60 ml/min/1.73 sqM) Glucose (74-99) mg/dL Calcium (8.4-10.2) mg/dL Magnesium (1.6-2.3) mg/dL Total Bilirubin (0.2-1.3) mg/dL AST (14-36) U/L ALT (4-34) U/L Alkaline Phosphatase (38-126) U/L Troponin I (0.000-0.034) ng/mL Total Protein (6.3-8.2) g/dL Albumin (3.5-5.0) g/dL Urine Color Colorless Urine Appearance Clear (Clear) Urine pH 6.0 (5.0-8.0) Ur Specific [place] 1.021 (1.001-1.035) Urine Protein 1+ H (Negative) Urine Glucose (UA) Negative (Negative) Urine Ketones Negative (Negative) Urine Blood Negative (Negative) Urine Nitrite Negative (Negative) Urine Bilirubin Negative (Negative) Urine Urobilinogen <2.0 (<2.0) mg/dL Ur Leukocyte Esterase Negative (Negative) Urine RBC <1 (0-5) /hpf Urine WBC 1 (0-5) /hpf Ur Squamous Epith Cells <1 (0-4) /hpf Urine Mucus Rare H (None) /hpf 07/21/23 07/21/23 07/21/23 Range/Units 00:36 00:36 03:24 WBC (3.8-10.6) k/uL RBC (3.80-5.40) m/uL Hgb (11.4-16.0) gm/dL Hct (34.0-46.0) % MCV (80.0-100.0) fL MCH (25.0-35.0) pg MCHC (31.0-37.0) g/dL RDW (11.5-15.5) % Plt Count (150-450) k/uL MPV Neutrophils % % Lymphocytes % % Monocytes % % Eosinophils % % Basophils % % Neutrophils # (1.3-7.7) k/uL Lymphocytes # (1.0-4.8) k/uL Monocytes # (0-1.0) k/uL Eosinophils # (0-0.7) k/uL Basophils # (0-0.2) k/uL PT (10.0-12.5) sec INR (<1.2) APTT (22.0-30.0) sec Sodium 142 (137-145) mmol/L Potassium 4.0 (3.5-5.1) mmol/L Chloride 102 (98-107) mmol/L Carbon Dioxide 24 (22-30) mmol/L Anion Gap 16 mmol/L BUN 17 (7-17) mg/dL Creatinine 0.78 (0.52-1.04) mg/dL Est GFR (CKD-EPI)AfAm >90 (>60 ml/min/1.73 sqM) Est GFR (CKD-EPI)NonAf >90 (>60 ml/min/1.73 sqM) Glucose 128 H (74-99) mg/dL Calcium 10.4 H (8.4-10.2) mg/dL Magnesium 1.8 (1.6-2.3) mg/dL Total Bilirubin 0.6 (0.2-1.3) mg/dL AST 40 H (14-36) U/L ALT 59 H (4-34) U/L Alkaline Phosphatase 145 H (38-126) U/L Troponin I <0.012 <0.012 (0.000-0.034) ng/mL Total Protein 9.4 H (6.3-8.2) g/dL Albumin 5.5 H (3.5-5.0) g/dL Urine Color Urine Appearance (Clear) Urine pH (5.0-8.0) Ur Specific [place] (1.001-1.035) Urine Protein (Negative) Urine Glucose (UA) (Negative) Urine Ketones (Negative) Urine Blood (Negative) Urine Nitrite (Negative) Urine Bilirubin (Negative) Urine Urobilinogen (<2.0) mg/dL Ur Leukocyte Esterase (Negative) Urine RBC (0-5) /hpf Urine WBC (0-5) /hpf Ur Squamous Epith Cells (0-4) /hpf Urine Mucus (None) /hpf Disposition <Dylan Munoz - Last Filed: 07/21/23 00:19> Is patient prescribed a controlled substance at d/c from ED?: No Time of Disposition: 04:05 <Vamshi Marin - Last Filed: 07/21/23 04:05> Clinical Impression: Chest pain Disposition: HOME SELF-CARE Condition: Good Instructions (If sedation given, give patient instructions): Chest Pain (ED) Referrals: Sadiq Livingston MD [Primary Care Provider] - 1-2 days
[2023-07-21 00:50] LABS: Basophils # (A) 0.1 k/uL (0-0.2); Basophils % (A) 1 %; Eosinophils # (A) 0.2 k/uL (0-0.7); Eosinophils % (A) 2 %; HCT 47.1 % (34.0-46.0); HGB 15.3 gm/dL (11.4-16.0); Lymphocytes # (A) 3.8 k/uL (1.0-4.8); Lymphocytes % (A) 36 %; MCH 27.1 pg (25.0-35.0); MCHC 32.5 g/dL (31.0-37.0); MCV 83.6 fL (80.0-100.0); Mean Platelet Volume 6.7; Monocytes # (A) 0.5 k/uL (0-1.0); Monocytes % (A) 5 %; Neutrophils # (A) 5.8 k/uL (1.3-7.7); Neutrophils % (A) 54 %; Platelet Count 376 k/uL (150-450); RBC 5.64 m/uL (3.80-5.40); RDW 12.9 % (11.5-15.5); WBC 10.7 k/uL (3.8-10.6)
[2023-07-21 00:59] LABS: INR 0.9 (<1.2); Prothrombin Time 9.9 sec (10.0-12.5)
[2023-07-21 01:07] LABS: ALT 59 U/L (4-34); AST 40 U/L (14-36); African American GFR (CKD) >90 (>60 ml/min/1.73 sqM); Albumin 5.5 g/dL (3.5-5.0); Alkaline Phosphatase 145 U/L (38-126); Anion Gap 16 mmol/L; Blood Urea Nitrogen 17 mg/dL (7-17); Calcium 10.4 mg/dL (8.4-10.2); Carbon Dioxide 24 mmol/L (22-30); Chloride 102 mmol/L (98-107); Glucose 128 mg/dL (74-99); Magnesium 1.8 mg/dL (1.6-2.3); Non-African American GFR(CKD) >90 (>60 ml/min/1.73 sqM); Sodium 142 mmol/L (137-145); Total Bilirubin 0.6 mg/dL (0.2-1.3); Total Protein 9.4 g/dL (6.3-8.2)
[2023-07-21 01:19] LABS: Appearance,Urine Clear (Clear); Bilirubin,Urine Negative (Negative); Blood,Urine Negative (Negative); Color,Urine Colorless; Glucose,Urine (UA) Negative (Negative); Ketones,Urine Negative (Negative); Leukocyte Esterase,Urine Negative (Negative); Mucus,Urine Rare /hpf; Nitrite,Urine Negative (Negative); Protein,Urine 1+ (Negative); RBC,Urine <1 /hpf (0-5); Specific Gravity,Urine 1.021 (1.001-1.035); Squamous Epithelial Cell,Urine <1 /hpf (0-4); Urobilinogen,Urine <2.0 mg/dL (<2.0); WBC,Urine 1 /hpf (0-5)
--- NOTE | 2023-07-21 01:23 | XR ---
EXAM: XR Chest, 2 Views CLINICAL HISTORY: XR Reason: Chest Pain TECHNIQUE: Frontal and lateral views of the chest. COMPARISON: November 24, 2022 FINDINGS: Lungs: Unremarkable. No consolidation. Pleural space: Unremarkable. No pneumothorax. Heart: Unremarkable. No cardiomegaly. Mediastinum: Unremarkable. Normal mediastinal contour. Bones/joints: Unremarkable. No acute fracture. IMPRESSION: Normal chest x-rays.
[2023-07-21] MEDS: ASPIRIN 81 MG PO STA (02:47)
[2023-07-21 04:29] VITALS: BP 152/104; PULSE 82; RESP 16; TEMP 98
== END 2023-07-21 04:11 | disposition home or self-care (01) ==
LOC: EC 23:36
DX: R07.2 Precordial pain (principal); E03.9 Hypothyroidism, unspecified; K21.9 Gastro-esophageal reflux disease without esophagitis; F12.90 Cannabis use, unspecified, uncomplicated; F41.9 Anxiety disorder, unspecified; F31.9 Bipolar disorder, unspecified; Z79.899 Other long term (current) drug therapy; Z79.890 Hormone replacement therapy
CPT/HCPCS: 36415; 71046; 80053; 81001; 83735; 84484; 85025; 85610; 85730; 93005; 99285